=== PATIENT | female | born 1935 | race Caucasian/White ===

== ENCOUNTER 2016-08-11 05:44 | Day surgery (SDC) | payer MEDICARE, OTHER ==
[2016-08-11] MEDS ORDERED: Lactated Ringers 1,000 ML IV SCH (06:30)
[2016-08-11] MEDS ORDERED: DIPRIVAN 200 MG/20 ML IV ONE (08:00)
[2016-08-11 08:54] VITALS: O2SAT 94
[2016-08-11 10:28] VITALS: BP 150/79; PULSE 72
--- NOTE | 2016-08-11 14:12 | OP ---
SURGERY DATE: 08/11/16 SURGERY TIME: 725 PREOPERATIVE DIAGNOSIS: 1. RECTAL BLEEDING. POSTOPERATIVE DIAGNOSIS: 1. MULTIPLE COLON POLYPS. 2. SMALL SEGMENT OF COLITIS IN THE SIGMOID COLON. PROCEDURE: 1. Colonoscopy with polypectomy. SURGEON: Dr. Celaya. ANESTHESIA: MAC, medications given by the Anesthesia Department. BRIEF HISTORY: The patient is a 80 y/o WF patient presenting now for complaints of rectal bleeding. The patient was felt to need to have endoscopic evaluation. She was appraised of the risks of the procedure including the risk of perforation, phlebitis, untoward reaction to medication, bleeding, and missed lesions. The patient verbalized her understanding and desired to have the procedure performed. DESCRIPTION OF PROCEDURE: The patient was given the medications by the Anesthesia Department. She had continuous pulse oximetry, ECG monitoring, intermittent BP monitoring, and end tidal CO2 monitoring during the examination. She was placed in the left lateral decubitus position. A digital rectal examination was performed and revealed normal anal sphincter tone and no masses. The flexible Olympus pediatric colonoscope was used to intubate the rectum. A view of the colon was developed sequentially to the cecum. Upon insertion and withdrawal, was noted multiple polyps, 1 in each segment of the colon was removed including a larger one in the rectosigmoid area which was removed using polypectomy snare and retrieved for pathologic evaluation. There was also noted approximately a 5-10 cm area of colitis in the sigmoid colon with erythema and mucus, but no erosions. The scope was removed from the patient who tolerated the procedure well and was sent back to OP recovery in good condition. The prep was noted to be fair to good.
== END 2016-08-11 09:45 | disposition home or self-care (01) ==
LOC: SDC 05:44
PROVIDERS: ATTEND Family Medicine
PROC: 0DBK8ZX Excision of Ascending Colon, Via Natural or Artificial Opening Endoscopic, Diagnostic (ICD-10-PCS; principal; 2016-08-11)
PROC: 0DBL8ZX Excision of Transverse Colon, Via Natural or Artificial Opening Endoscopic, Diagnostic (ICD-10-PCS; 2016-08-11)
PROC: 0DBM8ZX Excision of Descending Colon, Via Natural or Artificial Opening Endoscopic, Diagnostic (ICD-10-PCS; 2016-08-11)
DX: D12.2 Benign neoplasm of ascending colon (principal); D12.4 Benign neoplasm of descending colon; D12.3 Benign neoplasm of transverse colon; K52.9 Noninfective gastroenteritis and colitis, unspecified
CPT/HCPCS: 00810; 36415; 88305; 99100; J2704

== ENCOUNTER 2021-06-25 10:50 | Inpatient (IN) | payer MEDICARE ==
[2021-06-25] MEDS ORDERED: Sodium Chloride 0.9% 1000 ML 1,000 ML IV STA (11:25)
[2021-06-25] MEDS ORDERED: Zosyn 3.375 GM Vial 3.375 GM in Sodium Chloride 100ML MINI-BAG PLUS 100 ML IV ONE (11:26)
[2021-06-25] MEDS ORDERED: VANCOMYCIN 2 GRAM/400 ML BAG 2 GM/400 ML PIGGYBACK IV ONE ×2 (11:27→11:34)
[2021-06-25] MEDS ORDERED: Zosyn 3.375 GM Vial IV ONE (11:33)
[2021-06-25 11:34] LABS: Absolute Neutrophil Ct (ANC) 6.97 (1.4-6.9); Basophil (Absolute #) 0.02 (0-0.4); Eosinophil % 0.6 % (0.00-5.0); Eosinophil (Absolute #) 0.05 (0-0.5); Hemoglobin 8.8 gm/dl (12.0-16.0); Lymphocyte (Absolute #) 0.62 (1.0-4.6); Lymphocytes % 7.6 % (24.0-44.0); Mean Cell Volume 90.6 fl (78-100); Mean Corpuscular Hemoglobin 27.5 pg (26-32); Mean Corpuscular Hgb Concent. 30.3 g/dl (32-36); Mean Platelet Volume 7.8 fl (7.5-11.0); Monocyte (Absolute #) 0.54 (0.0-1.3); Monocytes % 6.6 % (0.0-12.0); Platelet Count 216 K/mm3 (150-450); Red Cell Distribution Width 18.1 % (11.5-14.0); White Blood Count 8.2 K/mm3 (4.0-10.5)
[2021-06-25] MEDS ORDERED: Sodium Chloride 100ML MINI-BAG PLUS 100 ML IV ONE (11:34)
[2021-06-25] MEDS ORDERED: Sodium Chloride 0.9% 1000 ML 1,000 ML ONE (11:34)
[2021-06-25 11:42] LABS: INR 1.75 (0.8-3.0); PROTIME 20.7 SECONDS (9.4-12.5)
--- NOTE | 2021-06-25 11:49 | ERPHSYRPT ---
- History of Present Illness Time Seen by Provider: 06/25/21 11:03 Source: patient, EMS Exam Limitations: no limitations Patient Subjective Stated Complaint: Pt states "I just cant move today.". ems states "we went on her last night and she did not want to go. We got called out to her house for general weakness and she was half in her seat." Triage Nursing Assessment: PT presented alert and oriented X 3, Skin pwd. Pt smells strongly of infection. Pt depends is full of watery diarrhea and she has large wounds on her backside. Wound is unstageable. pictures were taken. Pt was cleaned and changed. Physician History: 85 years old female with history of atrial fibrillation on Coumadin/digoxin, hypothyroidism, baseline issue with ambulation and uses walker presented in the ER by EMS with increasing generalized weakness since yesterday and today was not able to get out of her chair. Denies any focal numbness tingling or weakness. Patient also reports having loose diarrhea without any abdominal pain nausea or vomiting. Has bilateral lower extremity chronic venous stasis with more swelling and redness on the right as compared to the left and a weeping wound. Patient also has lower back/tailbone area pressure ulcer with black eschar which she is unaware of. Denies fever or chills. Denies any sick contacts. Has minimal productive cough for last couple of days. No chest pain but has palpitations. Patient is hypoxic on room air with sats around lower 80s, placed on 3 L oxygen currently 96%. Timing/Duration: day(s) (1), constant, gradual onset, worse Severity: moderate Associated Symptoms: rash, weakness, No fever Allergies/Adverse Reactions: Penicillins Allergy (Verified 08/11/16 06:17) Home Medications: Amlodipine Besylate/Benazepril [Amlodipine-Benazepril 5-10 mg] 1 each PO DAILY 05/16/13 [History] Digoxin 0.125 mg Tablet [Lanoxin 0.125MG TABLET] 0.125 mg PO DAILY 05/16/13 [History] Potassium Chloride [Klor-Con 10] 10 meq PO BID 05/16/13 [History] Warfarin Sodium 2 mg [Coumadin 2 MG] 7 mg PO DAILY 05/16/13 [History] Levothyroxine Sodium 25 mcg PO DAILY 08/07/16 [History] Furosemide 20 mg [Lasix 20 mg] 20 mg PO BID 06/25/21 [History] Hx Tetanus, Diphtheria Vaccination/Date Given: No Hx Influenza Vaccination/Date Given: Yes (2012) Hx Pneumococcal Vaccination/Date Given: Yes Immunizations Up to Date: Yes Travel Risk - International Travel Have you traveled outside of the country in past 3 weeks: No - Coronavirus Screening Are you exhibiting any of the following symptoms?: No Close contact with a COVID-19 positive Pt in past 14-21 Days: No - Vaccine Status Have you recieved a Covid-19 vaccination: Yes [employer]: Moderna - Vaccination Dates Date of 2cond Vaccination (if applicable): 2020 - Review of Systems Constitutional: Fatigue, Weakness Eyes: No Symptoms Ears, Nose, & Throat: No Symptoms Respiratory: Cough Cardiac: Palpitations Abdominal/Gastrointestinal: Diarrhea Genitourinary Symptoms: No Symptoms Musculoskeletal: Arthralgias Skin: Cellulitis, Induration, Rash, Skin Lesions Neurological: No Symptoms Psychological: No Symptoms Endocrine: No Symptoms Hematologic/Lymphatic: No Symptoms Immunological/Allergic: No Symptoms - Past Medical History Pertinent Past Medical History: Yes Neurological History: No Pertinent History ENT History: Cataracts Cardiac History: Arrhythmia, Hypertension, Other Respiratory History: No Pertinent History Endocrine Medical History: Hypothyroidism Musculoskeletal History: No Pertinent History GI Medical History: No Pertinent History History: No Pertinent History Psycho-Social History: No Pertinent History Female Reproductive Disorders: No Pertinent History - Past Surgical History Past Surgical History: Yes Neuro Surgical History: No Pertinent History Cardiac: No Pertinent History Respiratory: No Pertinent History Gastrointestinal: No Pertinent History Genitourinary: No Pertinent History Musculoskeletal: Joint Replacement Female Surgical History: No Pertinent History Other Surgical History: R Breast BIOPSY, L total Hip, redone next year later.corby cataract removal with lens implant - Social History Smoking Status: Former smoker Exposure to second hand smoke: No Drug Use: none Patient Lives Alone: No Significant Family History: no pertinent family hx - Nursing Vital Signs Nursing Vital Signs: Initial Vital Signs Temperature 98.0 F 06/25/21 10:51 Pulse Rate 119 H 06/25/21 10:51 Respiratory Rate 22 06/25/21 10:51 Pain Scale Pain Intensity 0 - Physical Exam General Appearance: no apparent distress, alert Eye Exam: PERRL/EOMI, eyes nml inspection Ears, Nose, Throat Exam: pharyngeal erythema Neck Exam: normal inspection, supple, full range of motion Respiratory Exam: diminished breath sounds, rhonchi, wheezing, No respiratory distress, No accessory muscle use Cardiovascular Exam: normal heart sounds, tachycardia Gastrointestinal/Abdomen Exam: soft, normal bowel sounds, other (Reducible umbilical hernia), No tenderness Back Exam: other (Tailbone area tissue erythema with a central black eschar) Extremity Exam: inflammation (Bilateral lower extremity erythema more on the right side extending to the knee with weeping wound on the lateral aspect, greenish discharge), pedal edema, swelling Neurologic Exam: alert, oriented x 3, cooperative Skin Exam: rash, decubitus SpO2 Interpretation: hypoxic, O2 applied SpO2: 96 O2 Delivery: Nasal Cannula - Course EKG Interpreted by Me: RATE (124), A-fib, Left [place] Deviation, NORMAL INTERVALS, Right Bundle Branch Block, Non-specific ST Changes Ordered Tests: Active Orders 24 hr Category Date Time Status Bedrest ROUTINE Activity 06/25/21 14:52 Active Up With Assistance ROUTINE Activity 06/25/21 14:52 Active Admit as Inpatient ROUTINE Care 06/25/21 14:52 Active Aeroplane Pilot STAT Care 06/25/21 11:28 Completed Code Status Order ROUTINE Care 06/25/21 14:52 Active EKG-ER Only STAT Care 06/25/21 11:25 Completed Fall Protocol Q1H Care 06/25/21 14:52 Active Cruz [Catheter-[place]] STAT Care 06/25/21 11:28 Completed IV Care Q6H Care 06/25/21 14:52 Active IV Insertion STAT Care 06/25/21 11:19 Completed IV Insertion-2nd Peripheral STAT Care 06/25/21 11:19 Completed Neuro Checks Q4H Care 06/25/21 14:52 Active Oxygen-ED Only Nasal Cannula 2 lpm Care 06/25/21 11:28 Completed Heart-Healthy Diet Diet 06/25/21 Dinner Active CHEST 1 VIEW (PORTABLE) Stat Exams 06/25/21 11:25 Completed BLOOD CULTURE Stat Lab 06/25/21 11:00 Received CBC W DIFF AM.LAB Lab 06/26/21 01:00 Completed CBC W DIFF Stat Lab 06/25/21 11:15 Completed CK-Creatinine Phosphokinase Routine Lab 06/25/21 14:23 Completed CMP AM.LAB Lab 06/26/21 01:00 Completed CMP Stat Lab 06/25/21 11:15 Completed CULTURE,URINE Stat Lab 06/25/21 11:27 Received Lactic Acid Stat Lab 06/25/21 11:25 Completed MAGNESIUM Stat Lab 06/25/21 11:15 Completed NT PRO BNP Routine Lab 06/25/21 14:23 Completed PROCALCITONIN Stat Lab 06/25/21 11:15 Completed PROTIME WITH INR Stat Lab 06/25/21 11:15 Completed Potassium Routine Lab 06/25/21 14:23 Completed TROPONIN Q3H Lab 06/25/21 11:15 Completed TROPONIN Q3H Lab 06/25/21 14:23 Completed TROPONIN Q3H Lab 06/25/21 17:30 Completed TROPONIN Q3H Lab 06/25/21 21:55 Completed TSH, 3RD Generation Stat Lab 06/25/21 11:15 Completed UA W/RFX UR CULTURE Stat Lab 06/25/21 11:27 Completed Oxygen Nasal Cannula 3 lpm RT 06/25/21 14:52 Active Medication Summary Generic Name Dose Route Start Last Admin Trade Name Freq PRN Reason Stop Dose Admin Acetaminophen 650 mg 06/25/21 14:52 Acetaminophen 325 Mg Tablet PO 07/25/21 14:51 Q4H PRN PRN PAIN AND/OR FEVER Sodium Chloride 1,000 mls @ 100 mls/hr 06/25/21 14:52 06/26/21 02:54 Sodium Chloride 0.9% 1000 Ml IV 07/25/21 14:51 100 mls/hr .Q10H MARGARET Administration Piperacillin Sod/Tazobactam 100 mls @ 200 mls/hr 06/25/21 22:00 06/25/21 21:17 Sod 2.25 gm/ Sodium Chloride IV 07/25/21 21:59 200 mls/hr Q8HT MARGARET Administration Vancomycin HCl 1 gm in 200 mls @ 133.333 mls/hr 06/26/21 10:00 Vancomycin 1 Gram/200 Ml Bag IV 07/26/21 09:59 DAILY MARGARET Ondansetron HCl 4 mg 06/25/21 14:52 Ondansetron Hcl 4 Mg/2 Ml Vial IV 07/25/21 14:51 Q6H PRN PRN NAUSEA/VOMITING Pantoprazole Sodium 40 mg 06/25/21 16:00 06/25/21 16:35 Pantoprazole 40 Mg Vial IV 07/25/21 15:59 40 mg Q24H10 MARGARET Administration Discontinued Medications Generic Name Dose Route Start Last Admin Trade Name Freq PRN Reason Stop Dose Admin Albuterol/Ipratropium 3 ml 06/25/21 14:52 Ipratropium/Albuterol Sulfate 3 Ml Ampul.Neb 07/25/21 14:51 Q4HPRN PRN SHORTNESS OF BREATH/WHEEZING Sodium Chloride 1,000 mls @ 999 mls/hr 06/25/21 11:25 06/25/21 12:53 Sodium Chloride 0.9% 1000 Ml IV 06/25/21 12:25 Infused .Q1H1M STA Infusion Piperacillin Sod/Tazobactam 100 mls @ 200 mls/hr 06/25/21 11:26 06/25/21 11:38 Sod 3.375 gm/ Sodium Chloride IV 06/25/21 11:55 200 mls/hr STAT ONE Administration Vancomycin HCl 2 gm in 400 mls @ 133.333 mls/hr 06/25/21 11:27 06/25/21 13:52 Vancomycin 2 Gram/400 Ml Bag IV 06/25/21 14:26 Infused STAT ONE Infusion Sodium Chloride Confirm 06/25/21 11:34 Sodium Chloride 100ml Mini-Bag Plus Administered 06/25/21 11:35 Dose 100 mls @ ud IV .STK-MED ONE Vancomycin HCl Confirm 06/25/21 11:34 Vancomycin 2 Gram/400 Ml Bag Administered 06/25/21 11:35 Dose 2 gm in 400 mls @ ud IV .STK-MED ONE Sodium Chloride Confirm 06/25/21 11:34 Sodium Chloride 0.9% 1000 Ml Administered 06/25/21 11:35 Dose 1,000 mls @ ud .ROUTE .STK-MED ONE Piperacillin Sod/Tazobactam Sod Confirm 06/25/21 11:33 Piperacillin/Tazobactam Sodium 3.375 Gm Vial Administered 06/25/21 11:34 Dose 3.375 gm IV .STK-MED ONE Lab/Rad Data: Laboratory Result Diagrams 06/25/21 11:15 06/25/21 14:23 Laboratory Results 06/25/21 06/25/21 06/25/21 Range/Units 14:23 11:27 11:27 WBC (4.0-10.5) K/mm3 RBC (4.1-5.4) M/mm3 Hgb (12.0-16.0) gm/dl Hct (35-47) % MCV (78-100) fl MCH (26-32) pg MCHC (32-36) g/dl RDW (11.5-14.0) % Plt Count (150-450) K/mm3 MPV (7.5-11.0) fl Gran % (36.0-66.0) % Eos # (Auto) (0-0.5) Absolute Lymphs (auto) (1.0-4.6) Absolute Monos (auto) (0.0-1.3) Lymphocytes % (24.0-44.0) % Monocytes % (0.0-12.0) % Eosinophils % (0.00-5.0) % Basophils % (0.0-0.4) % Absolute Granulocytes (1.4-6.9) Basophils # (0-0.4) PT (9.4-12.5) SECONDS INR (0.8-3.0) Sodium (137-145) mmol/L Potassium 5.6 H (3.5-5.1) mmol/L Chloride (98-107) mmol/L Carbon Dioxide (22-30) mmol/L Anion Gap (5-15) MEQ/L BUN (7-17) mg/dL Creatinine (0.52-1.04) mg/dL Estimated GFR ML/MIN Glucose (74-106) mg/dL Lactic Acid (0.4-2.0) Calcium (8.4-10.2) mg/dL Magnesium (1.6-2.3) mg/dL Total Bilirubin (0.2-1.3) mg/dL AST (14-36) U/L ALT (0-35) U/L Alkaline Phosphatase (38-126) U/L Creatine Kinase 608 H (30-135) U/L Troponin I 0.033 (0.000-0.034) ng/mL NT-Pro-B Natriuret Pep 06717 H (0-1800) pg/mL Serum Total Protein (6.3-8.2) g/dL Albumin (3.5-5.0) g/dL Procalcitonin (0.030-0.080) ng/mL TSH 3rd Generation (0.47-4.68) mIU/L Urine Color SHAQ (YELLOW) Urine Appearance CLOUDY (CLEAR) Urine pH 7.0 (5-6) Ur Specific [place] 1.014 (1.005-1.025) Urine Protein 100 (Negative) Urine Ketones TRACE (NEGATIVE) Urine Blood SMALL (0-5) [place]/ul Urine Nitrite NEGATIVE (NEGATIVE) Urine Bilirubin NEGATIVE (NEGATIVE) Urine Urobilinogen 4 (0-1) mg/dL Ur Leukocyte Esterase NEGATIVE (NEGATIVE) Urine WBC (Auto) 11-15 (0-5) /HPF Urine RBC (Auto) 11-15 (0-2) /HPF U Epithel Cells (Auto) RARE (FEW) /HPF Urine Bacteria (Auto) FEW (NEGATIVE) /HPF Urine Mucus (Auto) SLIGHT (NEGATIVE) /HPF Urine Culture Reflexed YES (NO) Urine Glucose NEGATIVE (NEGATIVE) mg/dL Influenza Type A Ag NEGATIVE (NEGATIVE) Influenza Type B Ag NEGATIVE (NEGATIVE) RSV (PCR) NEGATIVE (Negative) SARS-CoV-2 (PCR) NEGATIVE (NEGATIVE) 06/25/21 06/25/21 06/25/21 Range/Units 11:25 11:15 11:15 WBC (4.0-10.5) K/mm3 RBC (4.1-5.4) M/mm3 Hgb (12.0-16.0) gm/dl Hct (35-47) % MCV (78-100) fl MCH (26-32) pg MCHC (32-36) g/dl RDW (11.5-14.0) % Plt Count (150-450) K/mm3 MPV (7.5-11.0) fl Gran % (36.0-66.0) % Eos # (Auto) (0-0.5) Absolute Lymphs (auto) (1.0-4.6) Absolute Monos (auto) (0.0-1.3) Lymphocytes % (24.0-44.0) % Monocytes % (0.0-12.0) % Eosinophils % (0.00-5.0) % Basophils % (0.0-0.4) % Absolute Granulocytes (1.4-6.9) Basophils # (0-0.4) PT (9.4-12.5) SECONDS INR (0.8-3.0) Sodium (137-145) mmol/L Potassium (3.5-5.1) mmol/L Chloride (98-107) mmol/L Carbon Dioxide (22-30) mmol/L Anion Gap (5-15) MEQ/L BUN (7-17) mg/dL Creatinine (0.52-1.04) mg/dL Estimated GFR ML/MIN Glucose (74-106) mg/dL Lactic Acid 1.9 (0.4-2.0) Calcium (8.4-10.2) mg/dL Magnesium (1.6-2.3) mg/dL Total Bilirubin (0.2-1.3) mg/dL AST (14-36) U/L ALT (0-35) U/L Alkaline Phosphatase (38-126) U/L Creatine Kinase (30-135) U/L Troponin I 0.035 H (0.000-0.034) ng/mL NT-Pro-B Natriuret Pep (0-1800) pg/mL Serum Total Protein (6.3-8.2) g/dL Albumin (3.5-5.0) g/dL Procalcitonin 0.886 H (0.030-0.080) ng/mL TSH 3rd Generation (0.47-4.68) mIU/L Urine Color (YELLOW) Urine Appearance (CLEAR) Urine pH (5-6) Ur Specific [place] (1.005-1.025) Urine Protein (Negative) Urine Ketones (NEGATIVE) Urine Blood (0-5) [place]/ul Urine Nitrite (NEGATIVE) Urine Bilirubin (NEGATIVE) Urine Urobilinogen (0-1) mg/dL Ur Leukocyte Esterase (NEGATIVE) Urine WBC (Auto) (0-5) /HPF Urine RBC (Auto) (0-2) /HPF U Epithel Cells (Auto) (FEW) /HPF Urine Bacteria (Auto) (NEGATIVE) /HPF Urine Mucus (Auto) (NEGATIVE) /HPF Urine Culture Reflexed (NO) Urine Glucose (NEGATIVE) mg/dL Influenza Type A Ag (NEGATIVE) Influenza Type B Ag (NEGATIVE) RSV (PCR) (Negative) SARS-CoV-2 (PCR) (NEGATIVE) 06/25/21 06/25/21 06/25/21 Range/Units 11:15 11:15 11:15 WBC 8.2 (4.0-10.5) K/mm3 RBC 3.20 L (4.1-5.4) M/mm3 Hgb 8.8 L (12.0-16.0) gm/dl Hct 29.0 L (35-47) % MCV 90.6 (78-100) fl MCH 27.5 (26-32) pg MCHC 30.3 L (32-36) g/dl RDW 18.1 H (11.5-14.0) % Plt Count 216 (150-450) K/mm3 MPV 7.8 (7.5-11.0) fl Gran % 85.0 H (36.0-66.0) % Eos # (Auto) 0.05 (0-0.5) Absolute Lymphs (auto) 0.62 L (1.0-4.6) Absolute Monos (auto) 0.54 (0.0-1.3) Lymphocytes % 7.6 L (24.0-44.0) % Monocytes % 6.6 (0.0-12.0) % Eosinophils % 0.6 (0.00-5.0) % Basophils % 0.2 (0.0-0.4) % Absolute Granulocytes 6.97 H (1.4-6.9) Basophils # 0.02 (0-0.4) PT 20.7 H (9.4-12.5) SECONDS INR 1.75 (0.8-3.0) Sodium 138 (137-145) mmol/L Potassium 5.9 H (3.5-5.1) mmol/L Chloride 104 (98-107) mmol/L Carbon Dioxide 24 (22-30) mmol/L Anion Gap 16.4 H (5-15) MEQ/L BUN 80 H (7-17) mg/dL Creatinine 2.35 H (0.52-1.04) mg/dL Estimated GFR 21.0 ML/MIN Glucose 80 (74-106) mg/dL Lactic Acid (0.4-2.0) Calcium 8.8 (8.4-10.2) mg/dL Magnesium 2.9 H (1.6-2.3) mg/dL Total Bilirubin 1.80 H (0.2-1.3) mg/dL AST 38 H (14-36) U/L ALT 16 (0-35) U/L Alkaline Phosphatase 89 (38-126) U/L Creatine Kinase (30-135) U/L Troponin I (0.000-0.034) ng/mL NT-Pro-B Natriuret Pep (0-1800) pg/mL Serum Total Protein 7.8 (6.3-8.2) g/dL Albumin 3.3 L (3.5-5.0) g/dL Procalcitonin (0.030-0.080) ng/mL TSH 3rd Generation 5.410 H (0.47-4.68) mIU/L Urine Color (YELLOW) Urine Appearance (CLEAR) Urine pH (5-6) Ur Specific [place] (1.005-1.025) Urine Protein (Negative) Urine Ketones (NEGATIVE) Urine Blood (0-5) [place]/ul Urine Nitrite (NEGATIVE) Urine Bilirubin (NEGATIVE) Urine Urobilinogen (0-1) mg/dL Ur Leukocyte Esterase (NEGATIVE) Urine WBC (Auto) (0-5) /HPF Urine RBC (Auto) (0-2) /HPF U Epithel Cells (Auto) (FEW) /HPF Urine Bacteria (Auto) (NEGATIVE) /HPF Urine Mucus (Auto) (NEGATIVE) /HPF Urine Culture Reflexed (NO) Urine Glucose (NEGATIVE) mg/dL Influenza Type A Ag (NEGATIVE) Influenza Type B Ag (NEGATIVE) RSV (PCR) (Negative) SARS-CoV-2 (PCR) (NEGATIVE) 06/25/21 Range/Units 01:00 WBC (4.0-10.5) K/mm3 RBC (4.1-5.4) M/mm3 Hgb (12.0-16.0) gm/dl Hct (35-47) % MCV (78-100) fl MCH (26-32) pg MCHC (32-36) g/dl RDW (11.5-14.0) % Plt Count (150-450) K/mm3 MPV (7.5-11.0) fl Gran % (36.0-66.0) % Eos # (Auto) (0-0.5) Absolute Lymphs (auto) (1.0-4.6) Absolute Monos (auto) (0.0-1.3) Lymphocytes % (24.0-44.0) % Monocytes % (0.0-12.0) % Eosinophils % (0.00-5.0) % Basophils % (0.0-0.4) % Absolute Granulocytes (1.4-6.9) Basophils # (0-0.4) PT (9.4-12.5) SECONDS INR (0.8-3.0) Sodium (137-145) mmol/L Potassium (3.5-5.1) mmol/L Chloride (98-107) mmol/L Carbon Dioxide (22-30) mmol/L Anion Gap (5-15) MEQ/L BUN (7-17) mg/dL Creatinine (0.52-1.04) mg/dL Estimated GFR ML/MIN Glucose (74-106) mg/dL Lactic Acid (0.4-2.0) Calcium (8.4-10.2) mg/dL Magnesium (1.6-2.3) mg/dL Total Bilirubin (0.2-1.3) mg/dL AST (14-36) U/L ALT (0-35) U/L Alkaline Phosphatase (38-126) U/L Creatine Kinase (30-135) U/L Troponin I 0.042 H* (0.000-0.034) ng/mL NT-Pro-B Natriuret Pep (0-1800) pg/mL Serum Total Protein (6.3-8.2) g/dL Albumin (3.5-5.0) g/dL Procalcitonin (0.030-0.080) ng/mL TSH 3rd Generation (0.47-4.68) mIU/L Urine Color (YELLOW) Urine Appearance (CLEAR) Urine pH (5-6) Ur Specific [place] (1.005-1.025) Urine Protein (Negative) Urine Ketones (NEGATIVE) Urine Blood (0-5) [place]/ul Urine Nitrite (NEGATIVE) Urine Bilirubin (NEGATIVE) Urine Urobilinogen (0-1) mg/dL Ur Leukocyte Esterase (NEGATIVE) Urine WBC (Auto) (0-5) /HPF Urine RBC (Auto) (0-2) /HPF U Epithel Cells (Auto) (FEW) /HPF Urine Bacteria (Auto) (NEGATIVE) /HPF Urine Mucus (Auto) (NEGATIVE) /HPF Urine Culture Reflexed (NO) Urine Glucose (NEGATIVE) mg/dL Influenza Type A Ag (NEGATIVE) Influenza Type B Ag (NEGATIVE) RSV (PCR) (Negative) SARS-CoV-2 (PCR) (NEGATIVE) - Progress Progress: improved, re-examined Progress Note: 06/25/21 14:22 85 years old is evaluated for generalized weakness. Patient was tachycardic on presentation, A. fib with RVR, heart rate in 120s and hypoxic, placed on oxygen. She has right lower extremity cellulitis and decubitus ulcers on low back, started on antibiotics. Work-up showed normal white count, hemoglobin 8.8 which is around her baseline 9. Has acute on chronic renal failure with a creatinine of 2.35 and BUN of 80. Patient also has elevated magnesium and potassium of 5.9 which I believe will improve with fluids. EKG did not show any acute ST elevation. Initial troponins 0.035 which I believe is secondary to A. fib and also renal failure and less of CAD related. Does have UTI. Antibiotics will cover it. I have discussed with Dr. Doyle, reviewed history, current work- up, will continue to gently hydrate and both hold off on Cardizem as her heart rate currently is less than 110. Is possible more related to dehydration and sepsis. Patient is being admitted. Discussed with : Shavon Will see patient in: hospital (full admit) Counseled pt/family regarding: lab results, diagnosis, need for follow-up, rad results - Departure Departure Disposition: Home Clinical Impression: Atrial fibrillation with RVR, Sepsis, Cellulitis, Acute on chronic renal gomez lure, Dehydration, Acute UTI Condition: Stable Critical Care Time: Yes Critical Care Time(excluding separately billable procedures): Critical 30-74 mins
[2021-06-25 11:56] LABS: Appearance CLOUDY (CLEAR); Bacteria FEW /HPF (NEGATIVE); Bilirubin NEGATIVE (NEGATIVE); Blood SMALL Ery/ul (0-5); Epithelial Cells RARE /HPF (FEW); Glucose NEGATIVE (NEGATIVE); Ketones TRACE (NEGATIVE); Leukocyte Esterase NEGATIVE (NEGATIVE); Mucus SLIGHT /HPF (NEGATIVE); Nitrite NEGATIVE (NEGATIVE); Protein,Urine Dip 100 (Negative); Specific Gravity 1.014 (1.005-1.025); Urobilinogen 4 mg/dL (0-1)
[2021-06-25 12:16] LABS: ALBUMIN 3.3 g/dL (3.5-5.0); ANION GAP 16.4 MEQ/L (5-15); BILIRUBIN,TOTAL 1.8 mg/dL (0.2-1.3); Calcium 8.8 mg/dL (8.4-10.2); Creatinine 1 2.35 mg/dL (0.52-1.04); MAGNESIUM 2.9 mg/dL (1.6-2.3); Potassium 5.9 mmol/L (3.5-5.1); TSH, 3RD Generation 5.41 mIU/L (0.47-4.68); Total Protein 7.8 g/dL (6.3-8.2)
[2021-06-25 12:23] LABS: INFLUENZA A NEGATIVE (NEGATIVE); INFLUENZA B NEGATIVE (NEGATIVE); RESPIRATORY SYNCTIAL VIRUS NEGATIVE (Negative); SARS-CoV-2 Xpert Express NEGATIVE (NEGATIVE)
[2021-06-25 14:43] LABS: Potassium 5.6 mmol/L (3.5-5.1); TROPONIN 0.033 ng/mL (0.000-0.034)
[2021-06-25] MEDS ORDERED: VANCOCIN 1 GM VIAL*** 1 GM in Sodium Chloride 0.9% 250 ML 250 ML IV SCH (14:52)
[2021-06-25] MEDS ORDERED: DUONEB 0.5-3 MG/3 ml Neb IH PRN (14:52)
[2021-06-25] MEDS ORDERED: Zofran 4 MG/2 ML VIAL IV PRN (14:52)
[2021-06-25] MEDS ORDERED: TYLENOL 325 MG PO PRN (14:52)
[2021-06-25] MEDS: Sodium Chloride 0.9% 1000 ML 1,000 ML IV SCH (16:34)
[2021-06-25] MEDS: PROTONIX 40 MG IV IV SCH (16:35)
[2021-06-25] MEDS ORDERED: Zosyn 3.375 GM Vial 3.375 GM in Sodium Chloride 100ML MINI-BAG PLUS 100 ML IV SCH (18:00)
--- NOTE | 2021-06-25 18:08 | XRAY ---
Indication: Weakness and short of breath. Comparison: May 16, 2013. Portable apical lordotic chest demonstrates worsening massive cardiomegaly and new small right/tiny left effusions favoring cardiac decompensation/CHF. Superimposed pneumonia not completely excluded. Bony thorax intact with again osteopenia and degenerative changes. Comment: Preliminary interpretation made by [facility]. No critical discrepancy.
[2021-06-25] MEDS: Zosyn 2.25 GM 2.25 GM in Sodium Chloride 100ML MINI-BAG PLUS 100 ML IV SCH (21:17)
[2021-06-26 01:17] LABS: Absolute Neutrophil Ct (ANC) 7.11 (1.4-6.9); Basophil (Absolute #) 0.01 (0-0.4); Eosinophil % 0.9 % (0.00-5.0); Eosinophil (Absolute #) 0.07 (0-0.5); Hematocrit 26.7 % (35-47); Lymphocyte (Absolute #) 0.61 (1.0-4.6); Lymphocytes % 7.4 % (24.0-44.0); Mean Cell Volume 91.4 fl (78-100); Mean Corpuscular Hemoglobin 27.4 pg (26-32); Mean Platelet Volume 7.9 fl (7.5-11.0); Monocyte (Absolute #) 0.43 (0.0-1.3); Monocytes % 5.2 % (0.0-12.0); Neutrophil % 86.4 % (36.0-66.0); Platelet Count 172 K/mm3 (150-450); Red Blood Count 2.92 M/mm3 (4.1-5.4); Red Cell Distribution Width 17.8 % (11.5-14.0); White Blood Count 8.2 K/mm3 (4.0-10.5)
[2021-06-26 01:56] LABS: ANION GAP 16.3 MEQ/L (5-15); BILIRUBIN,TOTAL 1.3 mg/dL (0.2-1.3); Creatinine 1 2.25 mg/dL (0.52-1.04); EST GLOMERULAR FILTRATION RATE 22.1 ML/MIN; Potassium 5.1 mmol/L (3.5-5.1); Total Protein 7.2 g/dL (6.3-8.2)
[2021-06-26] MEDS: Sodium Chloride 0.9% 1000 ML 1,000 ML IV SCH ×2 (02:54→14:44)
[2021-06-26] MEDS: Zosyn 2.25 GM 2.25 GM in Sodium Chloride 100ML MINI-BAG PLUS 100 ML IV SCH ×3 (06:14→21:31)
[2021-06-26] MEDS: PROTONIX 40 MG IV IV SCH (09:18)
[2021-06-26] MEDS: Lanoxin 0.125MG TABLET PO SCH (09:18)
[2021-06-26] MEDS: Lotrel 5/10 MG PO SCH ×2 (09:18→09:22)
[2021-06-26] MEDS: SYNTHROID 25 MCG PO SCH (09:18)
[2021-06-26] MEDS: LASIX 20 MG PO SCH ×2 (09:18→17:20)
[2021-06-26] MEDS: VANCOMYCIN 1 GRAM/200 ML BAG 1 GM/200 ML PIGGYBACK IV SCH (09:18)
[2021-06-26] MEDS ORDERED: ENOXAPARIN SODIUM SQ SCH (14:00)
--- NOTE | 2021-06-26 14:25 | PCM.HP ---
History of Present Illness - Chief Complaint Chief Complaint: AFIB W RVR, SEPSIS, CELLULITIS, DEHYDRATION, UTI, ACUTE CHRONIC RENAL FAILU History of Present Illness: is a 85 year old female of Dr Celaya with PMHx severe mitral and tricuspid regurgitataion and Afib on coumadin and dig. HTN ,hypothyroid and CRF. States she has seen a Kidney Specialist a few months ago. Patient lives at home with her and has had a decline in strength since [place]. Family states she stopped taking Lotrel and it is not clear if she has been taking her other meds. She presented to ER with extreme weakness stating she could not stand up on her own. C/O legs swollen for weeks and getting worse. Medications & Allergies Home Medications: Home Medication List Amlodipine Besylate/Benazepril [Amlodipine-Benazepril 5-10 mg] 1 each PO DAILY 05/16/13 [History Confirmed 06/25/21] Digoxin 0.125 mg Tablet [Lanoxin 0.125MG TABLET] 0.125 mg PO DAILY 05/16/13 [History Confirmed 06/25/21] Potassium Chloride [Klor-Con 10] 10 meq PO BID 05/16/13 [History Confirmed 06/25/21] Warfarin Sodium 2 mg [Coumadin 2 MG] 7 mg PO DAILY 05/16/13 [History Confirmed 06/25/21] Levothyroxine Sodium 25 mcg PO DAILY 08/07/16 [History Confirmed 06/25/21] Furosemide 20 mg [Lasix 20 mg] 20 mg PO BID 06/25/21 [History Confirmed 06/25/21] Allergies/Adverse Reactions: Allergies Allergy/AdvReac Type Severity Reaction Status Date / Time Penicillins Allergy Verified 08/11/16 06:17 - Past Medical History Past Medical History: Yes Neurological History: No Pertinent History ENT History: Cataracts Cardiac History: Arrhythmia, Hypertension, Other Respiratory History: No Pertinent History Endocrine Medical History: Hypothyroidism Musculoskelatal History: No Pertinent History GI Medical History: No Pertinent History History: No Pertinent History Pyscho-Social History: No Pertinent History Reproductive Disorders: No Pertinent History - Past Surgical History Past Surgical History: Yes Neuro Surgical History: No Pertinent History Cardiac History: No Pertinent History Respiratory Surgery: No Pertinent History GI Surgical History: No Pertinent History Genitourinary Surgical Hx: No Pertinent History Musculskeletal Surgical Hx: Joint Replacement Female Surgical History: No Pertinent History Other Surgical History: R Breast BIOPSY, L total Hip, redone next year later.corby cataract removal with lens implant - Social History Smoking Status: Former smoker Exposure to second hand smoke: No Alcohol: None Drug Use: none Significant Family History: no pertinent family hx - Physical Exam Vital Signs: Vital Signs - 24 hr Temp Pulse Resp BP Pulse Ox 06/26/21 12:00 98.2 F 83 21 101/53 93 L 06/26/21 08:00 97.8 F 111 H 26 H 102/56 91 L 06/26/21 07:21 91 L 06/26/21 06:12 96 06/26/21 04:15 98.8 F 109 H 22 91/55 96 06/25/21 23:50 99.1 F 107 H 18 94/56 95 06/25/21 19:31 98.3 F 113 H 22 97/56 96 06/25/21 18:00 97.5 F 113 H 21 101/56 06/25/21 16:56 97.6 F 110 H 84/51 96 06/25/21 15:59 96 06/25/21 15:00 97.6 F 110 H 20 84/51 97 Wound Assessment: Skin/Wound Assessment Wound/Incision Assessment Start: 06/25/21 17:23 Text: Status: Active Freq: Q6H Protocol: Document 06/26/21 08:49 (Rec: 06/26/21 08:51 [id number]) Wound/Incision Assessment Right Arm Wound Assessment Shift Assessment Wound Type Skin Tear Wound Stage Non Pressure Wound Dressing Status Changed Drainage Amount Minimal Drainage Description Serosanguineous General Appearance Bleeding Primary Dressing mepilex Comment mepilex covering Buttock Wound Assessment Shift Assessment Wound Type Pressure Ulcer Wound Stage Unstageable Drainage Amount Minimal Drainage Description Serosanguineous Drainage Odor Mild Odor General Appearance Open to air,Clean/Dry, Blackened,Bleeding Surrounding Tissue [place],Purple Comment multiple pressure ulcers to buttock Results - Labs Lab/Micro Results: Lab Results-Last 24 Hours 06/25/21 06/25/21 06/25/21 Range/Units 01:00 14:23 17:30 WBC (4.0-10.5) K/mm3 RBC (4.1-5.4) M/mm3 Hgb (12.0-16.0) gm/dl Hct (35-47) % MCV (78-100) fl MCH (26-32) pg MCHC (32-36) g/dl RDW (11.5-14.0) % Plt Count (150-450) K/mm3 MPV (7.5-11.0) fl Gran % (36.0-66.0) % Eos # (Auto) (0-0.5) Absolute Lymphs (auto) (1.0-4.6) Absolute Monos (auto) (0.0-1.3) Lymphocytes % (24.0-44.0) % Monocytes % (0.0-12.0) % Eosinophils % (0.00-5.0) % Basophils % (0.0-0.4) % Absolute Granulocytes (1.4-6.9) Basophils # (0-0.4) Sodium (137-145) mmol/L Potassium 5.6 H (3.5-5.1) mmol/L Chloride (98-107) mmol/L Carbon Dioxide (22-30) mmol/L Anion Gap (5-15) MEQ/L BUN (7-17) mg/dL Creatinine (0.52-1.04) mg/dL Estimated GFR ML/MIN Glucose (74-106) mg/dL Calcium (8.4-10.2) mg/dL Total Bilirubin (0.2-1.3) mg/dL AST (14-36) U/L ALT (0-35) U/L Alkaline Phosphatase (38-126) U/L Creatine Kinase 608 H (30-135) U/L Troponin I 0.042 H* 0.033 0.038 H* (0.000-0.034) ng/mL NT-Pro-B Natriuret Pep 84650 H (0-1800) pg/mL Serum Total Protein (6.3-8.2) g/dL Albumin (3.5-5.0) g/dL 06/25/21 06/26/21 06/26/21 Range/Units 21:55 01:00 01:00 WBC 8.2 (4.0-10.5) K/mm3 RBC 2.92 L (4.1-5.4) M/mm3 Hgb 8.0 L (12.0-16.0) gm/dl Hct 26.7 L (35-47) % MCV 91.4 (78-100) fl MCH 27.4 (26-32) pg MCHC 30.0 L (32-36) g/dl RDW 17.8 H (11.5-14.0) % Plt Count 172 (150-450) K/mm3 MPV 7.9 (7.5-11.0) fl Gran % 86.4 H (36.0-66.0) % Eos # (Auto) 0.07 (0-0.5) Absolute Lymphs (auto) 0.61 L (1.0-4.6) Absolute Monos (auto) 0.43 (0.0-1.3) Lymphocytes % 7.4 L (24.0-44.0) % Monocytes % 5.2 (0.0-12.0) % Eosinophils % 0.9 (0.00-5.0) % Basophils % 0.1 (0.0-0.4) % Absolute Granulocytes 7.11 H (1.4-6.9) Basophils # 0.01 (0-0.4) Sodium 137 (137-145) mmol/L Potassium 5.1 (3.5-5.1) mmol/L Chloride 105 (98-107) mmol/L Carbon Dioxide 20 L (22-30) mmol/L Anion Gap 16.3 H (5-15) MEQ/L BUN 75 H (7-17) mg/dL Creatinine 2.25 H (0.52-1.04) mg/dL Estimated GFR 22.1 ML/MIN Glucose 76 (74-106) mg/dL Calcium 8.0 L (8.4-10.2) mg/dL Total Bilirubin 1.30 (0.2-1.3) mg/dL AST 42 H (14-36) U/L ALT 15 (0-35) U/L Alkaline Phosphatase 77 (38-126) U/L Creatine Kinase (30-135) U/L Troponin I 0.037 H* (0.000-0.034) ng/mL NT-Pro-B Natriuret Pep (0-1800) pg/mL Serum Total Protein 7.2 (6.3-8.2) g/dL Albumin 3.0 L (3.5-5.0) g/dL - Radiology Impressions Radiology Exams & Impressions: Radiology Procedures Category Date Time Status CHEST 1 VIEW (PORTABLE) Stat Exams 06/25/21 11:25 Completed CHEST WITHOUT CONTRAST [CT] Stat Exams 06/25/21 14:52 Taken - Other Procedures and Tests Respiratory Therapy 06/25/21 14:52 Oxygen Nasal Cannula 3 lpm
[2021-06-27] MEDS: Sodium Chloride 0.9% 1000 ML 1,000 ML IV SCH ×2 (01:31→11:22)
[2021-06-27 05:26] LABS: Absolute Neutrophil Ct (ANC) 4.92 (1.4-6.9); Basophil (Absolute #) 0.01 (0-0.4); Eosinophil % 1.9 % (0.00-5.0); Eosinophil (Absolute #) 0.12 (0-0.5); Hematocrit 26.5 % (35-47); Hemoglobin 7.7 gm/dl (12.0-16.0); Lymphocyte (Absolute #) 0.82 (1.0-4.6); Lymphocytes % 13.1 % (24.0-44.0); Mean Cell Volume 92.7 fl (78-100); Mean Corpuscular Hemoglobin 26.9 pg (26-32); Mean Corpuscular Hgb Concent. 29.1 g/dl (32-36); Mean Platelet Volume 8.3 fl (7.5-11.0); Monocytes % 6.4 % (0.0-12.0); Neutrophil % 78.4 % (36.0-66.0); Platelet Count 175 K/mm3 (150-450); Red Blood Count 2.86 M/mm3 (4.1-5.4); Red Cell Distribution Width 17.9 % (11.5-14.0); White Blood Count 6.3 K/mm3 (4.0-10.5)
[2021-06-27 05:48] LABS: ALBUMIN 2.8 g/dL (3.5-5.0); ANION GAP 15.1 MEQ/L (5-15); BILIRUBIN,TOTAL 1.1 mg/dL (0.2-1.3); Calcium 7.8 mg/dL (8.4-10.2); Creatinine 1 2.23 mg/dL (0.52-1.04); EST GLOMERULAR FILTRATION RATE 22.3 ML/MIN; Potassium 4.7 mmol/L (3.5-5.1); Total Protein 7.1 g/dL (6.3-8.2)
[2021-06-27] MEDS: Zosyn 2.25 GM 2.25 GM in Sodium Chloride 100ML MINI-BAG PLUS 100 ML IV SCH ×3 (06:32→21:02)
[2021-06-27] MEDS ORDERED: TROUGH DRUG LEVELS IJ ONE (09:30)
[2021-06-27 10:00] LABS: ABO TYPING A; Antibody Screen NEGATIVE (NEGATIVE); RH TYPING POSITIVE
[2021-06-27 10:06] LABS: CROSS MATCH (PRBC) COMPATIBLE (COMPATIBLE)
[2021-06-27] MEDS: VANCOMYCIN 1 GRAM/200 ML BAG 1 GM/200 ML PIGGYBACK IV SCH (10:10)
[2021-06-27] MEDS: Lanoxin 0.125MG TABLET PO SCH (10:11)
[2021-06-27] MEDS: Lotrel 5/10 MG PO SCH (10:11)
[2021-06-27] MEDS: ENOXAPARIN SODIUM SQ SCH (10:11)
[2021-06-27] MEDS: PROTONIX 40 MG IV IV SCH (10:11)
[2021-06-27] MEDS: LASIX 20 MG PO SCH ×2 (10:15→17:13)
[2021-06-27] MEDS: SYNTHROID 25 MCG PO SCH (10:15)
--- NOTE | 2021-06-27 10:25 | XRAY ---
Indication: Edema. Two-dimensional sonogram and color Doppler imaging of the major venous vessels of the left and right leg performed. Comparison: None No thrombus seen in the examined deep venous vessels of the left and right leg including greater saphenous vein. Veins demonstrate normal compressibility. Venous waveforms are normal with and without augmentation. Impression: Left and right legs negative for DVT.
--- NOTE | 2021-06-27 14:24 | ECHO ---
Transthoracic echocardiographic examination and color Doppler was done on 06/27/2021. INDICATION: Shortness of breath, congestive heart failure. IMPRESSION: 1) NO REGIONAL WALL MOTION ABNORMALITY. ESTIMATED GLOBAL LEFT VENTRICULAR EJECTION FRACTION AROUND 50 TO 55%. 2) MARKEDLY DILATED RIGHT SIDED CHAMBERS. 3) MODERATE MITRAL REGURGITATION. 4) SEVERE TRICUSPID REGURGITATION WITH A RIGHT VENTRICULAR SYSTOLIC PRESSURE OF 42 MM OF MERCURY. 5) MILD LEFT VENTRICULAR HYPERTROPHY. 6) MILDLY DILATED LEFT ATRIUM. 7) DILATED INFERIOR VENA CAVA. 8) NO EVIDENCE OF ASCITES. The left ventricle is visualized and demonstrated adequate motion of all the segments. Estimated global left ventricular ejection fraction between 50 to 55%. The right sided chambers are markedly dilated. There is severe tricuspid regurgitation with a right ventricular systolic pressure of 42 mm of Mercury. The mitral valve was seen this opens adequately. There is moderate mitral regurgitation with a color jet directed posteriorly. The aortic valve is sclerotic. The peak gradient across the aortic valve is 8 mm of Mercury. The visualized aorta appears to be normal. There is mild left ventricular hypertrophy. The inferior vena cava is dilated. There is also no evidence of ascites.
[2021-06-27] MEDS: Coreg 3.125 MG PO SCH (21:02)
[2021-06-27 21:19] LABS: Hematocrit 29.8 % (35-47); Hemoglobin 8.9 gm/dl (12.0-16.0)
[2021-06-27] MEDS ORDERED: Apresoline 25 MG TABLET PO SCH (22:00)
[2021-06-28 04:57] LABS: INR 1.58 (0.8-3.0); PROTIME 18.6 SECONDS (9.4-12.5)
[2021-06-28] MEDS: Zosyn 2.25 GM 2.25 GM in Sodium Chloride 100ML MINI-BAG PLUS 100 ML IV SCH ×2 (05:05→13:32)
[2021-06-28 07:51] LABS: Absolute Neutrophil Ct (ANC) 5.21 (1.4-6.9); Basophil (Absolute #) 0.01 (0-0.4); Eosinophil % 2.3 % (0.00-5.0); Eosinophil (Absolute #) 0.15 (0-0.5); Hematocrit 29.4 % (35-47); Hemoglobin 8.7 gm/dl (12.0-16.0); Lymphocyte (Absolute #) 0.73 (1.0-4.6); Lymphocytes % 11.2 % (24.0-44.0); Mean Cell Volume 93.3 fl (78-100); Mean Corpuscular Hemoglobin 27.6 pg (26-32); Mean Corpuscular Hgb Concent. 29.6 g/dl (32-36); Mean Platelet Volume 8.5 fl (7.5-11.0); Monocyte (Absolute #) 0.43 (0.0-1.3); Monocytes % 6.6 % (0.0-12.0); Neutrophil % 79.7 % (36.0-66.0); Platelet Count 194 K/mm3 (150-450); Red Blood Count 3.15 M/mm3 (4.1-5.4); Red Cell Distribution Width 17.5 % (11.5-14.0); White Blood Count 6.5 K/mm3 (4.0-10.5)
[2021-06-28 08:11] LABS: ANION GAP 16.6 MEQ/L (5-15); BILIRUBIN,TOTAL 0.9 mg/dL (0.2-1.3); Calcium 8.2 mg/dL (8.4-10.2); Creatinine 1 2.27 mg/dL (0.52-1.04); EST GLOMERULAR FILTRATION RATE 21.9 ML/MIN; Potassium 4.6 mmol/L (3.5-5.1); TROPONIN 0.022 ng/mL (0.000-0.034); Total Protein 7.5 g/dL (6.3-8.2)
[2021-06-28] MEDS: Lanoxin 0.125MG TABLET PO SCH (09:06)
[2021-06-28] MEDS: SYNTHROID 25 MCG PO SCH (09:10)
[2021-06-28] MEDS: Coreg 3.125 MG PO SCH (09:10)
[2021-06-28] MEDS: LASIX 20 MG PO SCH (09:11)
[2021-06-28] MEDS: Apresoline 25 MG TABLET PO SCH ×3 (09:11→13:36)
[2021-06-28] MEDS: ENOXAPARIN SODIUM SQ SCH (09:11)
[2021-06-28] MEDS: PROTONIX 40 MG IV IV SCH (09:12)
[2021-06-28] MEDS ORDERED: TROUGH DRUG LEVELS IJ ONE (09:30)
--- NOTE | 2021-06-28 10:11 | CONS ---
CONSULT DATE: 06/27/2021 BRIEF HISTORY: This is an 85-year-old who was seen for shortness of breath and leg edema. The patient has been bedridden for a number of weeks now and was admitted on 06/25/2021 with cellulitis, dehydration, urinary tract infection and renal failure. She lives at home with her and needs a lot of assistance to get up. She complains of shortness of breath even with just plain conversation. She denies any chest pain. In addition, she has developed significant swelling of both lower extremities. The patient has a history of permanent atrial fibrillation and also severe tricuspid regurgitation and moderate to severe mitral regurgitation. She has never been diagnosed with myocardial infarction. She is anticoagulated for atrial fibrillation but this has been held as she has significant anemia. CARDIAC RISK FACTORS: Negative for diabetes. History of hypertension. She is a reformed smoker. No known hyperlipidemia. CURRENT MEDICATIONS: Amlodipine/Benazepril 5-10 daily, digoxin 0.125 mg a day, furosemide 20 mg twice a day, levothyroxine 25 mcg daily, potassium 10 mEq twice a day. Coumadin which is held at this time. 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 RESPIRATORY: She has no history of bronchitis, no hemoptysis. GI: Denies any nausea. No vomiting. : No dysuria. She has BUN 75, creatinine 2.25, GFR 22. PERIPHERAL VASCULAR: No history of deep vein thrombosis but she has chronic venous insufficiency and lower extremity edema with cellulitis. PHYSICAL EXAMINATION: Blood pressure 96/60 with a heart rate of 86, respirations about 24. GENERAL: The patient is an elderly female who is emaciated, bedridden but still conversant. HEENT: Nonicteric sclera. Pale conjunctivae. NECK: There is a prominent V-wave. No carotid bruit. CHEST: The breath sounds are generally diminished with some coarse rhonchi. CARDIAC: Heart tones are variable with a grade 2/6 systolic murmur along the right parasternal border. There is a grade 2/6 holosystolic murmur at the apex. There is atrial fibrillation. ABDOMEN: Soft with normal bowel sounds. EXTREMITIES: There is bilateral leg edema with stasis dermatitis. LAB DATA AND DIAGNOSTIC TESTS: The BUN 75, creatinine 2.25, [place] [address]. Hemoglobin 7.7 with white count of 6.3, PLT count 175,000. The electrocardiogram shows atrial fibrillation with right bundle branch block and left posterior hemiblock. The echocardiogram shows left ventricular ejection fraction between 50-55%. The right side chambers are markedly dilated. There is severe tricuspid regurgitation. Right ventricular systolic pressure of 42 mm of Mercury. There is also moderate mitral regurgitation. IMPRESSION: The patient has: 1) Severe tricuspid regurgitation with a markedly dilated right side chambers. Essentially the patient is in right-sided failure. She has a cor pulmonale pathology. In addition, she has renal failure for which reason we are going to stop the Amlodipine-Benazepril and switch her to hydralazine and start at a lower dose with parameters to hold it for systolic blood pressure more than 110. In addition, we are going to start her on beta blockers. 2) Chronic atrial fibrillation. The patient needs to be anticoagulated but it needs to be held at this time as she has significant anemia. 3) History of hypertension. 4) Chronic renal failure probably stage 4 to 5. RECOMMENDATION: Clinical condition was explained in detail to the patient. Her overall prognosis is somewhat poor. Given her general debility with multiple medical comorbidities would stratify patient to a conservative approach.
--- NOTE | 2021-06-28 15:55 | PCM.CONS ---
Podiatry HPI - Consult Date of Consultation Date: 06/28/21 Reason for Consult: Bilateral venous insufficiency with localized edema Consulting Provider: KATHI SEXTON DPM - [facility] History of Present Illness: Lavonne is a very pleasant 85-year-old female who is seen at bedside this a.m. for bilateral leg swelling. Patient indicates that she had some significant leg swelling in the last several days. She has noticed with increase in her water pill a lot of the pain has subsided however her legs are significantly swollen and tender to the touch. She indicates that she does have a positive medical history of A. fib with RVR, acute on chronic renal failure and was recently admitted for generalized weakness.. She denies any constitutional symptoms of infection. She denies any other pedal complaints at this time. Medications & Allergies Home Medications: Home Medication List Amlodipine Besylate/Benazepril [Amlodipine-Benazepril 5-10 mg] 1 each PO DAILY 05/16/13 [History Confirmed 06/25/21] Digoxin 0.125 mg Tablet [Lanoxin 0.125MG TABLET] 0.125 mg PO DAILY 05/16/13 [History Confirmed 06/25/21] Potassium Chloride [Klor-Con 10] 10 meq PO BID 05/16/13 [History Confirmed 06/25/21] Warfarin Sodium 2 mg [Coumadin 2 MG] 7 mg PO DAILY 05/16/13 [History Confirmed 06/25/21] Levothyroxine Sodium 25 mcg PO DAILY 08/07/16 [History Confirmed 06/25/21] Furosemide 20 mg [Lasix 20 mg] 20 mg PO BID 06/25/21 [History Confirmed 06/25/21] Levofloxacin [Levofloxacin 250MG Tablet] 250 mg PO Q48H 10 Days #5 tab 06/28/21 [Rx] Allergies/Adverse Reactions: Allergies Allergy/AdvReac Type Severity Reaction Status Date / Time Penicillins Allergy Verified 08/11/16 06:17 - Past Medical History Past Medical History: Yes Neurological History: No Pertinent History ENT History: Cataracts Cardiac History: Arrhythmia, Hypertension, Other Respiratory History: No Pertinent History Endocrine Medical History: Hypothyroidism Musculoskelatal History: No Pertinent History GI Medical History: No Pertinent History History: No Pertinent History Pyscho-Social History: No Pertinent History Reproductive Disorders: No Pertinent History - Past Surgical History Past Surgical History: Yes Neuro Surgical History: No Pertinent History Cardiac History: No Pertinent History Respiratory Surgery: No Pertinent History GI Surgical History: No Pertinent History Genitourinary Surgical Hx: No Pertinent History Musculskeletal Surgical Hx: Joint Replacement Female Surgical History: No Pertinent History Other Surgical History: R Breast BIOPSY, L total Hip, redone next year later.corby cataract removal with lens implant - Social History Smoking Status: Former smoker Exposure to second hand smoke: No Alcohol: None Drug Use: none Significant Family History: no pertinent family hx Physical Exam - Narrative Narrative Physical Exam: Podiatry Physical Exam Vascular: DP and PT pulses are palpable. There is calf pain with compression of the bilateral calves. Pain with palpation to the greater saphenous vein at the inner aspect of the ankles. There is 4+ pitting edema to the bilateral lower extremity to the pretibial area and dorsal aspect of the foot. No evidence of cellulitis streaking. No inflammation noted at the posterior popliteal or inguinal lymph nodes on palpation. No evidence of lymphedema Dermatological: Skin is taut shiny with loss of resting skin tension lines. Once again 4+ pitting edema. Neurological: Protective sensation is intact. Epicritic sensation intact. Protopathic sensation intact. Musculoskeletal: Compartments soft and compressible. Pain with bilateral compression to calfs and medial aspect of ankle along course of greater saphenous vein. Wiggles toes remaining musculoskeletal exam deferred. Results - Labs Lab/Micro Results: Lab Results-Last 24 Hours 06/25/21 06/27/21 06/28/21 Range/Units 11:15 21:20 04:45 WBC 8.2 (4.0-10.5) K/mm3 RBC 3.20 L (4.1-5.4) M/mm3 Hgb 8.8 L 8.9 L (12.0-16.0) gm/dl Hct 29.0 L 29.8 L (35-47) % MCV 90.6 (78-100) fl MCH 27.5 (26-32) pg MCHC 30.3 L (32-36) g/dl RDW 18.1 H (11.5-14.0) % Plt Count 216 (150-450) K/mm3 MPV 7.8 (7.5-11.0) fl Gran % 85.0 H (36.0-66.0) % Eos # (Auto) 0.05 (0-0.5) Absolute Lymphs (auto) 0.62 L (1.0-4.6) Absolute Monos (auto) 0.54 (0.0-1.3) Lymphocytes % 7.6 L (24.0-44.0) % Monocytes % 6.6 (0.0-12.0) % Eosinophils % 0.6 (0.00-5.0) % Basophils % 0.2 (0.0-0.4) % Absolute Granulocytes 6.97 H (1.4-6.9) Basophils # 0.02 (0-0.4) Smear Path Review Pending PT (9.4-12.5) SECONDS INR (0.8-3.0) Sodium (137-145) mmol/L Potassium (3.5-5.1) mmol/L Chloride (98-107) mmol/L Carbon Dioxide (22-30) mmol/L Anion Gap (5-15) MEQ/L BUN (7-17) mg/dL Creatinine (0.52-1.04) mg/dL Estimated GFR ML/MIN Glucose (74-106) mg/dL Calcium (8.4-10.2) mg/dL Total Bilirubin (0.2-1.3) mg/dL AST (14-36) U/L ALT (0-35) U/L Alkaline Phosphatase (38-126) U/L Troponin I (0.000-0.034) ng/mL Serum Total Protein (6.3-8.2) g/dL Albumin (3.5-5.0) g/dL TSH 3rd Generation 5.900 H (0.47-4.68) mIU/L Digoxin (0.8-1.9) ng/mL 06/28/21 06/28/21 06/28/21 Range/Units 04:45 04:45 04:45 WBC 6.5 (4.0-10.5) K/mm3 RBC 3.15 L (4.1-5.4) M/mm3 Hgb 8.7 L (12.0-16.0) gm/dl Hct 29.4 L (35-47) % MCV 93.3 (78-100) fl MCH 27.6 (26-32) pg MCHC 29.6 L (32-36) g/dl RDW 17.5 H (11.5-14.0) % Plt Count 194 (150-450) K/mm3 MPV 8.5 (7.5-11.0) fl Gran % 79.7 H (36.0-66.0) % Eos # (Auto) 0.15 (0-0.5) Absolute Lymphs (auto) 0.73 L (1.0-4.6) Absolute Monos (auto) 0.43 (0.0-1.3) Lymphocytes % 11.2 L (24.0-44.0) % Monocytes % 6.6 (0.0-12.0) % Eosinophils % 2.3 (0.00-5.0) % Basophils % 0.2 (0.0-0.4) % Absolute Granulocytes 5.21 (1.4-6.9) Basophils # 0.01 (0-0.4) Smear Path Review PT 18.6 H (9.4-12.5) SECONDS INR 1.58 (0.8-3.0) Sodium (137-145) mmol/L Potassium (3.5-5.1) mmol/L Chloride (98-107) mmol/L Carbon Dioxide (22-30) mmol/L Anion Gap (5-15) MEQ/L BUN (7-17) mg/dL Creatinine (0.52-1.04) mg/dL Estimated GFR ML/MIN Glucose (74-106) mg/dL Calcium (8.4-10.2) mg/dL Total Bilirubin (0.2-1.3) mg/dL AST (14-36) U/L ALT (0-35) U/L Alkaline Phosphatase (38-126) U/L Troponin I (0.000-0.034) ng/mL Serum Total Protein (6.3-8.2) g/dL Albumin (3.5-5.0) g/dL TSH 3rd Generation (0.47-4.68) mIU/L Digoxin 1.1 (0.8-1.9) ng/mL 06/28/21 Range/Units 04:45 WBC (4.0-10.5) K/mm3 RBC (4.1-5.4) M/mm3 Hgb (12.0-16.0) gm/dl Hct (35-47) % MCV (78-100) fl MCH (26-32) pg MCHC (32-36) g/dl RDW (11.5-14.0) % Plt Count (150-450) K/mm3 MPV (7.5-11.0) fl Gran % (36.0-66.0) % Eos # (Auto) (0-0.5) Absolute Lymphs (auto) (1.0-4.6) Absolute Monos (auto) (0.0-1.3) Lymphocytes % (24.0-44.0) % Monocytes % (0.0-12.0) % Eosinophils % (0.00-5.0) % Basophils % (0.0-0.4) % Absolute Granulocytes (1.4-6.9) Basophils # (0-0.4) Smear Path Review PT (9.4-12.5) SECONDS INR (0.8-3.0) Sodium 140 (137-145) mmol/L Potassium 4.6 (3.5-5.1) mmol/L Chloride 111 H (98-107) mmol/L Carbon Dioxide 18 L (22-30) mmol/L Anion Gap 16.6 H (5-15) MEQ/L BUN 72 H (7-17) mg/dL Creatinine 2.27 H (0.52-1.04) mg/dL Estimated GFR 21.9 ML/MIN Glucose 93 (74-106) mg/dL Calcium 8.2 L (8.4-10.2) mg/dL Total Bilirubin 0.90 (0.2-1.3) mg/dL AST 32 (14-36) U/L ALT 14 (0-35) U/L Alkaline Phosphatase 70 (38-126) U/L Troponin I 0.022 (0.000-0.034) ng/mL Serum Total Protein 7.5 (6.3-8.2) g/dL Albumin 3.0 L (3.5-5.0) g/dL TSH 3rd Generation (0.47-4.68) mIU/L Digoxin (0.8-1.9) ng/mL Microbiology 06/25/21 11:27 Urine Culture - Final Catherized Aerococcus Viridans 06/25/21 11:00 Blood Culture Gram Stain - Final Blood Blood Culture - Final Proteus Mirabilis 06/25/21 11:15 Blood Culture Gram Stain - Preliminary Blood Blood Culture - Preliminary NO GROWTH TO DATE - Radiology Impressions Radiology Exams & Impressions: Radiology Procedures Category Date Time Status ECHO W/2D AND DOPPLER [US] Routine Exams 06/27/21 08:16 Completed VENOUS BILATERAL EXTREMITY [US] Urgent Exams 06/27/21 10:16 Completed Assessment/Plan (1) Venous insufficiency of both lower extremities Current Visit: Yes Status: Acute Assessment & Plan: Initial patient examination evaluation. Concern for deep vein thrombosis to the bilateral lower extremity secondary to calf pain was assessed with a venous ultrasound demonstrating negative for DVT at this time makes these patient an adequate candidate for compression therapy. Bilateral Unna boots were applied to the left and right lower extremity with moderate compression applied with Kerlix and Covan. This will be removed in 2 days for reassessment at that time we will determine if continued compression therapy will be appropriate. Patient okay from my standpoint for discharge if okay from medical standpoint we will continue to follow closely until then thank you Code(s): I87.2 - VENOUS INSUFFICIENCY (CHRONIC) (PERIPHERAL) (2) Localized edema due to fluid overload Current Visit: Yes Status: Acute Code(s): E87.70 - FLUID OVERLOAD, UNSPECIFIED (3) Bilateral calf pain Current Visit: Yes Status: Acute Code(s): M79.661 - PAIN IN RIGHT LOWER LEG; M79.662 - PAIN IN LEFT LOWER LEG (4) Difficulty in walking involving lower leg joint Current Visit: Yes Status: Acute Code(s): R26.2 - DIFFICULTY IN WALKING, NOT ELSEWHERE CLASSIFIED
[2021-06-28 16:19] VITALS: BP 82/47; PULSE 76; O2SAT 93
== END 2021-06-28 16:34 | DRG 308 ==
LOC: ED 10:50 → MED SURG 14:33
PROVIDERS: ADMIT Family Medicine; ATTEND Family Medicine
DX: I48.91 Unspecified atrial fibrillation (principal); A41.9 Sepsis, unspecified organism; N39.0 Urinary tract infection, site not specified; E86.0 Dehydration; I12.9 Hypertensive chronic kidney disease with stage 1 through stage 4 chronic kidney disease, or unspecified chronic kidney disease; E03.9 Hypothyroidism, unspecified; L89.306 Pressure-induced deep tissue damage of unspecified buttock; I87.2 Venous insufficiency (chronic) (peripheral); E87.70 Fluid overload, unspecified; I07.1 Rheumatic tricuspid insufficiency; M79.661 Pain in right lower leg; M79.662 Pain in left lower leg; R26.2 Difficulty in walking, not elsewhere classified; Z79.01 Long term (current) use of anticoagulants; Z79.899 Other long term (current) drug therapy; Z20.828 Contact with and (suspected) exposure to other viral communicable diseases
CPT/HCPCS: 0241U; 36000; 36415; 36430; 51702; 71045; 71250; 80053; 80162; 80202; 81001; 82550; 83605; 83735; 83880; 84132; 84145; 84443; 84484; 85014; 85018; 85025; 85610; 86850; 86900; 86901; 86922; 87040; 87077; 87086; 87186; 93005; 93041; 93306; 93970; 94760; 96360; 96365; 97161; 99285; P9016; 29580; 99222; J1650; J2543; A9270-GY; J3370

== ENCOUNTER 2021-06-29 15:42 | Observation (INO) | payer MEDICARE ==
[2021-06-29 15:52] LABS: A-aADO2 512; ABG HEMOGLOBIN 9.9; ABG POTASSIUM 4.9 (3.5-5.1); ARTERIAL BLD GAS O2 SATURATION 99.3 % (95-100); ARTERIAL BLOOD GAS BASE EXCESS -11.9 (-2.0-2.0); ARTERIAL BLOOD GAS FIO2 100 %; ARTERIAL BLOOD GAS PO2 125 mmHg (75-100); CARBOXYHEMOGLOBIN 2.2 % THgb (0.0-6.9); HCO3- 18.5 (22-28); HGB O2 SAT 96.3 g/dF (94-100); Methhemoglobin 0.9 % (1.4-1.5)
[2021-06-29 15:53] LABS: ABG SITE RIGHT RADIAL; ARTERIAL BLOOD GAS PCO2 61 mmHg (35-45); ARTERIAL BLOOD GAS pH 7.09 (7.35-7.45)
[2021-06-29 15:57] LABS: Hematocrit 34.1 % (35-47); Hemoglobin 9.8 gm/dl (12.0-16.0); Mean Cell Volume 95.8 fl (78-100); Mean Corpuscular Hemoglobin 27.5 pg (26-32); Mean Corpuscular Hgb Concent. 28.7 g/dl (32-36); Mean Platelet Volume 8.2 fl (7.5-11.0); Platelet Count 240 K/mm3 (150-450); Red Blood Count 3.56 M/mm3 (4.1-5.4); Red Cell Distribution Width 18.2 % (11.5-14.0); White Blood Count 9.6 K/mm3 (4.0-10.5)
[2021-06-29] MEDS ORDERED: Sodium Chloride 0.9% 1000 ML 1,000 ML IV SCH ×2 (16:00→20:37)
--- NOTE | 2021-06-29 16:12 | ERPHSYRPT ---
- History of Present Illness Time Seen by Provider: 06/29/21 15:50 Source: family, EMS, shelter records Exam Limitations: other (Patient unresponsive.) Physician History: Patient is an 85-year-old female presents to our ED from a shelter for evaluation status post cardiac arrest with return of spontaneous circulation. shelter nurse is present. She states patient was found unresponsive and pulseless. She initiated CPR. She achieved return of spontaneous circulation after 3 rounds of CPR. EMS arrived. Patient was found to be hypoxic at 79%. Supraglottic airway was achieved. O2 sats improved. RSI drugs were not used for supraglottic airway. Patient arrived airway intact. Oxygenation ventilation via BVM. Glucose was 118. shelter staff reports patient is a full code. Patient unable to provide information towards this HPI. On exam patient has Covan surrounding bilateral lower extremities. She has slight bruising of her left lower abdomen. shelter reports that patient is currently being treated for urinary tract infection. She is on Levaquin 250 mg p.o. daily. Family also informed us that patient has significant renal disease Timing/Duration: today Severity: severe Modifying Factors: Improves With: nothing Associated Symptoms: denies symptoms Allergies/Adverse Reactions: Penicillins Allergy (Verified 08/11/16 06:17) Home Medications: Amlodipine Besylate/Benazepril [Amlodipine-Benazepril 5-10 mg] 1 each PO DAILY 05/16/13 [History] Digoxin 0.125 mg Tablet [Lanoxin 0.125MG TABLET] 0.125 mg PO DAILY 05/16/13 [History] Potassium Chloride [Klor-Con 10] 10 meq PO BID 05/16/13 [History] Warfarin Sodium 2 mg [Coumadin 2 MG] 7 mg PO DAILY 05/16/13 [History] Levothyroxine Sodium 25 mcg PO DAILY 08/07/16 [History] Furosemide 20 mg [Lasix 20 mg] 20 mg PO BID 06/25/21 [History] Hx Tetanus, Diphtheria Vaccination/Date Given: No Hx Influenza Vaccination/Date Given: Yes (2012) Hx Pneumococcal Vaccination/Date Given: Yes Travel Risk - Vaccine Status Have you recieved a Covid-19 vaccination: Yes Vice President Integrated: Moderna - Vaccination Dates Date of 2cond Vaccination (if applicable): 2020 - Review of Systems All Other Systems: Unable due to condition - Past Medical History Pertinent Past Medical History: Yes Neurological History: No Pertinent History ENT History: Cataracts Cardiac History: Arrhythmia, Hypertension, Other Respiratory History: No Pertinent History Endocrine Medical History: Hypothyroidism Musculoskeletal History: No Pertinent History GI Medical History: No Pertinent History History: No Pertinent History Psycho-Social History: No Pertinent History Female Reproductive Disorders: No Pertinent History - Past Surgical History Past Surgical History: Yes Neuro Surgical History: No Pertinent History Cardiac: No Pertinent History Respiratory: No Pertinent History Gastrointestinal: No Pertinent History Genitourinary: No Pertinent History Musculoskeletal: Joint Replacement Female Surgical History: No Pertinent History Other Surgical History: R Breast BIOPSY, L total Hip, redone next year later.corby cataract removal with lens implant - Social History Smoking Status: Former smoker Exposure to second hand smoke: No Drug Use: none Patient Lives Alone: No Significant Family History: no pertinent family hx - Nursing Vital Signs Nursing Vital Signs: Initial Vital Signs Temperature 97.5 F 06/29/21 15:45 Pulse Rate 120 H 06/29/21 15:45 Respiratory Rate 0 L 06/29/21 15:45 Blood Pressure 91/56 06/29/21 15:45 Pain Scale Pain Intensity 0 - Physical Exam General Appearance: other (Patient unresponsive with supraglottic airway intact.) Eye Exam: other (Pupils equal round and sluggish.) Ears, Nose, Throat Exam: normal ENT inspection, TMs normal, pharynx normal (Unable to assess pharynx due to supraglottic airway) Neck Exam: normal inspection, supple, full range of motion Respiratory Exam: other (Breath sounds appear normal. Supraglottic airway intact.) Cardiovascular Exam: normal peripheral pulses (Diminished peripheral pulses particularly the dorsalis pedis pulses but appears bilaterally equal.), capillary refill 2-3 sec Gastrointestinal/Abdomen Exam: soft, other (There is a slight bruise to her left flank) Back Exam: normal inspection, normal range of motion Extremity Exam: normal inspection, normal range of motion, pelvis stable, other (Coban dressings bilateral lower extremity. Nursing staff informs me that patient also has a sacral ulcer.) Neurologic Exam: other (Patient has a supraglottic airway. Patient is not responsive at this time.) Skin Exam: pale Lymphatic Exam: No adenopathy SpO2 Interpretation: hypoxic SpO2: 95 O2 Delivery: Ambu-Bag - Course Nursing assessment & vital signs reviewed: Yes EKG Interpreted by Me: RATE, Sinus Rhythm, Sinus Tach - Radiology Exams Chest X-ray Interpretation: Teleradiologist Report (Massive cardiomegaly. Cardiac decompensation favored CHF. Pleural effusion) Ordered Tests: Active Orders 24 hr Category Date Time Status Bedrest ROUTINE Activity 06/29/21 20:37 Active Registered Safety Engineer STAT Care 06/29/21 15:49 Completed Code Status Order ROUTINE Care 06/29/21 20:37 Active EKG-ER Only STAT Care 06/29/21 15:48 Completed IV Care Q6H Care 06/29/21 20:37 Active IV Insertion STAT Care 06/29/21 15:48 Completed Neuro Checks Q4H Care 06/29/21 20:[address] in Observation ROUTINE Care 06/29/21 20:37 Active Pulse Oximetry (ED) STAT Care 06/29/21 15:48 Completed NPO Diet 06/29/21 20:38 Active CHEST 1 VIEW (PORTABLE) Stat Exams 06/29/21 15:48 Completed ABG [ARTERIAL BLOOD GASES] Stat Lab 06/29/21 15:48 Completed CBC W DIFF AM.LAB Lab 06/30/21 04:00 Ordered CBC W DIFF Stat Lab 06/29/21 15:50 Completed CMP AM.LAB Lab 06/30/21 04:00 Ordered CMP Stat Lab 06/29/21 15:50 Completed CULTURE,URINE Stat Lab 06/29/21 16:04 Received Lactic Acid AM.LAB Lab 06/30/21 04:00 Ordered Manual Differential NC Stat Lab 06/29/21 15:50 Completed NT PRO BNP Stat Lab 06/29/21 15:50 Completed POCT GLUCOSE Stat Lab 06/29/21 15:49 Completed PROTIME WITH INR Stat Lab 06/29/21 15:50 Completed PTT Stat Lab 06/29/21 15:50 Completed TROPONIN Q3H Lab 06/29/21 15:50 Completed TROPONIN Q3H Lab 06/30/21 01:00 Ordered TROPONIN Q3H Lab 06/30/21 04:00 Ordered UA W/RFX UR CULTURE Stat Lab 06/29/21 16:04 Completed Pulse Oximetry CONTINUOUS RT 06/29/21 20:37 Active Standby STAT RT 06/29/21 16:48 Completed Transfer Order Routine Transfer 06/29/21 Completed Medication Summary Generic Name Dose Route Start Last Admin Trade Name Freq PRN Reason Stop Dose Admin Sodium Chloride 1,000 mls @ 100 mls/hr 06/29/21 16:00 06/29/21 18:26 Sodium Chloride 0.9% 1000 Ml IV 07/29/21 15:59 Not Given .Q10H MARGARET Sodium Chloride 1,000 mls @ 100 mls/hr 06/29/21 20:37 Sodium Chloride 0.9% 1000 Ml IV 07/29/21 20:36 .Q10H MARGARET Morphine Sulfate 2 mg 06/29/21 20:37 Morphine Sulfate 2 Mg/Ml Inj IV 07/04/21 20:36 Q4H PRN PRN PAIN Ondansetron HCl 4 mg 06/29/21 20:37 Ondansetron Hcl 4 Mg/2 Ml Vial IV 07/29/21 20:36 Q6H PRN PRN NAUSEA/VOMITING Discontinued Medications Generic Name Dose Route Start Last Admin Trade Name Freq PRN Reason Stop Dose Admin Hydrocortisone Sodium Succinate 100 mg 06/29/21 17:25 06/29/21 18:20 Hydrocortisone Sod Succinate 100 Mg/Vial Vial IV 06/29/21 17:26 Not Given STAT ONE Morphine Sulfate 2 mg 06/29/21 16:54 06/29/21 16:55 Morphine Sulfate 2 Mg/Ml Inj IV 06/29/21 16:55 2 mg STAT ONE Administration Morphine Sulfate Confirm 06/29/21 16:53 Morphine Sulfate 2 Mg/Ml Inj Administered 06/29/21 16:54 Dose 2 mg .ROUTE .STK-MED ONE Sodium Bicarbonate Confirm 06/29/21 16:15 Sodium Bicarbonate 1 Meq/Ml 50ml Syringe Administered 06/29/21 16:16 Dose 50 meq IV .STK-MED ONE Sodium Bicarbonate 50 meq 06/29/21 16:16 06/29/21 16:17 Sodium Bicarbonate 1 Meq/Ml 50ml Syringe IV 06/29/21 16:17 50 meq STAT ONE Administration Lab/Rad Data: Laboratory Result Diagrams 06/29/21 15:50 06/29/21 15:50 Laboratory Results 06/29/21 06/29/21 06/29/21 Range/Units 16:56 16:04 16:00 WBC (4.0-10.5) K/mm3 RBC (4.1-5.4) M/mm3 Hgb (12.0-16.0) gm/dl Hct (35-47) % MCV (78-100) fl MCH (26-32) pg MCHC (32-36) g/dl RDW (11.5-14.0) % Plt Count (150-450) K/mm3 MPV (7.5-11.0) fl Segmented Neutrophils (36.0-66.0) % Band Neutrophils (0.0-2.0) % Lymphocytes (Manual) (24-44) % Monocytes (Manual) (0.0-12.0) % Platelet Estimate (NORMAL) RBC Morphology Macrocytosis PT (9.4-12.5) SECONDS INR (0.8-3.0) APTT (25.1-36.5) SECONDS Puncture Site pCO2 (35-45) mmHg pO2 (75-100) mmHg Base Excess (-2.0-2.0) O2 Saturation (94-100) g/dF ABG pH (7.35-7.45) ABG HCO3 (22-28) ABG O2 Sat (Measured) (95-100) % Mahad Test A-a Gradient a/A Ratio Hemoglobin Carboxyhemoglobin (0.0-6.9) % THgb Methemoglobin (1.4-1.5) % Potassium (3.5-5.1) Temperature C POC O2 Flow Rate % Sodium (137-145) mmol/L Chloride (98-107) mmol/L Carbon Dioxide (22-30) mmol/L Anion Gap (5-15) MEQ/L BUN (7-17) mg/dL Creatinine (0.52-1.04) mg/dL Estimated GFR ML/MIN Glucose (74-106) mg/dL POC Glucometer (74 to 106) mg/dL Calcium (8.4-10.2) mg/dL Total Bilirubin (0.2-1.3) mg/dL AST (14-36) U/L ALT (0-35) U/L Alkaline Phosphatase (38-126) U/L Troponin I (0.000-0.034) ng/mL NT-Pro-B Natriuret Pep (0-1800) pg/mL Serum Total Protein (6.3-8.2) g/dL Albumin (3.5-5.0) g/dL Urine Color YELLOW (YELLOW) Urine Appearance SLIGHTLY CLOUDY (CLEAR) Urine pH 6.0 (5-6) Ur Specific [place] 1.018 (1.005-1.025) Urine Protein >=500 (Negative) Urine Ketones NEGATIVE (NEGATIVE) Urine Blood LARGE (0-5) [place]/ul Urine Nitrite NEGATIVE (NEGATIVE) Urine Bilirubin NEGATIVE (NEGATIVE) Urine Urobilinogen NEGATIVE (0-1) mg/dL Ur Leukocyte Esterase TRACE (NEGATIVE) Urine WBC (Auto) 11-15 (0-5) /HPF Urine RBC (Auto) >101 (0-2) /HPF U Hyaline Cast (Auto) 3-5 (0-2) /LPF U Epithel Cells (Auto) RARE (FEW) /HPF Urine Bacteria (Auto) NONE (NEGATIVE) /HPF Urine Mucus (Auto) SLIGHT (NEGATIVE) /HPF Urine Culture Reflexed YES (NO) Urine Glucose NEGATIVE (NEGATIVE) mg/dL Digoxin 1.6 (0.8-1.9) ng/mL Influenza Type A Ag NEGATIVE (NEGATIVE) Influenza Type B Ag NEGATIVE (NEGATIVE) RSV (PCR) NEGATIVE (Negative) SARS-CoV-2 (PCR) NEGATIVE (NEGATIVE) 06/29/21 06/29/21 06/29/21 Range/Units 15:50 15:50 15:50 WBC (4.0-10.5) K/mm3 RBC (4.1-5.4) M/mm3 Hgb (12.0-16.0) gm/dl Hct (35-47) % MCV (78-100) fl MCH (26-32) pg MCHC (32-36) g/dl RDW (11.5-14.0) % Plt Count (150-450) K/mm3 MPV (7.5-11.0) fl Segmented Neutrophils (36.0-66.0) % Band Neutrophils (0.0-2.0) % Lymphocytes (Manual) (24-44) % Monocytes (Manual) (0.0-12.0) % Platelet Estimate (NORMAL) RBC Morphology Macrocytosis PT 17.1 H (9.4-12.5) SECONDS INR 1.45 (0.8-3.0) APTT 31.2 (25.1-36.5) SECONDS Puncture Site pCO2 (35-45) mmHg pO2 (75-100) mmHg Base Excess (-2.0-2.0) O2 Saturation (94-100) g/dF ABG pH (7.35-7.45) ABG HCO3 (22-28) ABG O2 Sat (Measured) (95-100) % Mahad Test A-a Gradient a/A Ratio Hemoglobin Carboxyhemoglobin (0.0-6.9) % THgb Methemoglobin (1.4-1.5) % Potassium 4.9 (3.5-5.1) Temperature C POC O2 Flow Rate % Sodium 140 (137-145) mmol/L Chloride 110 H (98-107) mmol/L Carbon Dioxide 18 L (22-30) mmol/L Anion Gap 16.9 H (5-15) MEQ/L BUN 74 H (7-17) mg/dL Creatinine 2.89 H (0.52-1.04) mg/dL Estimated GFR 16.5 ML/MIN Glucose 107 H (74-106) mg/dL POC Glucometer (74 to 106) mg/dL Calcium 8.3 L (8.4-10.2) mg/dL Total Bilirubin 0.90 (0.2-1.3) mg/dL AST 27 (14-36) U/L ALT 16 (0-35) U/L Alkaline Phosphatase 73 (38-126) U/L Troponin I 0.036 H* (0.000-0.034) ng/mL NT-Pro-B Natriuret Pep 49259 H (0-1800) pg/mL Serum Total Protein 7.5 (6.3-8.2) g/dL Albumin 3.1 L (3.5-5.0) g/dL Urine Color (YELLOW) Urine Appearance (CLEAR) Urine pH (5-6) Ur Specific [place] (1.005-1.025) Urine Protein (Negative) Urine Ketones (NEGATIVE) Urine Blood (0-5) [place]/ul Urine Nitrite (NEGATIVE) Urine Bilirubin (NEGATIVE) Urine Urobilinogen (0-1) mg/dL Ur Leukocyte Esterase (NEGATIVE) Urine WBC (Auto) (0-5) /HPF Urine RBC (Auto) (0-2) /HPF U Hyaline Cast (Auto) (0-2) /LPF U Epithel Cells (Auto) (FEW) /HPF Urine Bacteria (Auto) (NEGATIVE) /HPF Urine Mucus (Auto) (NEGATIVE) /HPF Urine Culture Reflexed (NO) Urine Glucose (NEGATIVE) mg/dL Digoxin (0.8-1.9) ng/mL Influenza Type A Ag (NEGATIVE) Influenza Type B Ag (NEGATIVE) RSV (PCR) (Negative) SARS-CoV-2 (PCR) (NEGATIVE) 06/29/21 06/29/21 06/29/21 Range/Units 15:50 15:49 15:48 WBC 9.6 (4.0-10.5) K/mm3 RBC 3.56 L (4.1-5.4) M/mm3 Hgb 9.8 L (12.0-16.0) gm/dl Hct 34.1 L (35-47) % MCV 95.8 (78-100) fl MCH 27.5 (26-32) pg MCHC 28.7 L (32-36) g/dl RDW 18.2 H (11.5-14.0) % Plt Count 240 (150-450) K/mm3 MPV 8.2 (7.5-11.0) fl Segmented Neutrophils 81 H (36.0-66.0) % Band Neutrophils 2 (0.0-2.0) % Lymphocytes (Manual) 14 L (24-44) % Monocytes (Manual) 3 (0.0-12.0) % Platelet Estimate NORMAL (NORMAL) RBC Morphology ABNORMAL Macrocytosis 1+ PT (9.4-12.5) SECONDS INR (0.8-3.0) APTT (25.1-36.5) SECONDS Puncture Site RIGHT RADIAL pCO2 61 H* (35-45) mmHg pO2 125 H* (75-100) mmHg Base Excess -11.9 L (-2.0-2.0) O2 Saturation 96.3 (94-100) g/dF ABG pH 7.09 L* (7.35-7.45) ABG HCO3 18.5 L (22-28) ABG O2 Sat (Measured) 99.3 (95-100) % Mahad Test NOT APPLICABLE A-a Gradient 512 a/A Ratio 0.20 Hemoglobin 9.9 Carboxyhemoglobin 2.2 (0.0-6.9) % THgb Methemoglobin 0.9 L (1.4-1.5) % Potassium 4.9 (3.5-5.1) Temperature 37.0 C POC O2 Flow Rate 100 % Sodium (137-145) mmol/L Chloride (98-107) mmol/L Carbon Dioxide (22-30) mmol/L Anion Gap (5-15) MEQ/L BUN (7-17) mg/dL Creatinine (0.52-1.04) mg/dL Estimated GFR ML/MIN Glucose (74-106) mg/dL POC Glucometer 98 (74 to 106) mg/dL Calcium (8.4-10.2) mg/dL Total Bilirubin (0.2-1.3) mg/dL AST (14-36) U/L ALT (0-35) U/L Alkaline Phosphatase (38-126) U/L Troponin I (0.000-0.034) ng/mL NT-Pro-B Natriuret Pep (0-1800) pg/mL Serum Total Protein (6.3-8.2) g/dL Albumin (3.5-5.0) g/dL Urine Color (YELLOW) Urine Appearance (CLEAR) Urine pH (5-6) Ur Specific [place] (1.005-1.025) Urine Protein (Negative) Urine Ketones (NEGATIVE) Urine Blood (0-5) [place]/ul Urine Nitrite (NEGATIVE) Urine Bilirubin (NEGATIVE) Urine Urobilinogen (0-1) mg/dL Ur Leukocyte Esterase (NEGATIVE) Urine WBC (Auto) (0-5) /HPF Urine RBC (Auto) (0-2) /HPF U Hyaline Cast (Auto) (0-2) /LPF U Epithel Cells (Auto) (FEW) /HPF Urine Bacteria (Auto) (NEGATIVE) /HPF Urine Mucus (Auto) (NEGATIVE) /HPF Urine Culture Reflexed (NO) Urine Glucose (NEGATIVE) mg/dL Digoxin (0.8-1.9) ng/mL Influenza Type A Ag (NEGATIVE) Influenza Type B Ag (NEGATIVE) RSV (PCR) (Negative) SARS-CoV-2 (PCR) (NEGATIVE) - Progress Progress: unchanged Progress Note: Elevated BNP. However due to the low blood pressure we will hold off on Lasix at this time. After further discussion with family they decided not to intubate patient. They agreed to pulling the supraglottic airway. Patient breathing spontaneously on her own. Patient was made a DNR. Oxygen facemask applied. Patient resting comfortably. Case discussed with Dr. Christensen who accepts admission to observation. 06/29/21 17:29 Patient is Covid negative. Patient is known to have a urinary tract infection. Patient currently being treated for urinary tract infection. She is receiving oral antibiotics at shelter. Portions of this note were created with voice recognition technology. There may be grammatical, spelling, punctuation or sound alike errors 06/29/21 18:26 06/29/21 22:[address] Daniela Will see patient in: hospital (observation) Counseled pt/family regarding: lab results, diagnosis, rad results - Departure Departure Disposition: Observation Clinical Impression: Cardiac arrest, Signs of return of spontaneous circulation, Unresponsive, Anemia, Acute renal injury, Dehydration, Respiratory acidosis, High anion gap metabolic acidosis, Hypocalcemia, Elevated troponin, Elevated brain natriuretic peptide (BNP) level, Elevated serum creatinine, Massive cardiomegaly, Pleural effusion, Congestive heart failure, UTI (urinary tract infection), Hematuria Condition: Stable Critical Care Time: No
[2021-06-29] MEDS ORDERED: SODIUM BICARBONATE 50 MEQ/50 ML ABBOJECT IV ONE ×2 (16:15→16:16)
--- NOTE | 2021-06-29 16:19 | XRAY ---
Indication: Cardiac arrest. Comparison: June 25, 2021. Portable chest again demonstrates massive cardiomegaly with increasing moderate right and increasing small left effusions again favoring cardiac decompensation/CHF. No new cardiopulmonary abnormalities.
[2021-06-29 16:20] LABS: INR 1.45 (0.8-3.0); PROTIME 17.1 SECONDS (9.4-12.5)
[2021-06-29 16:23] LABS: PTT 31.2 SECONDS (25.1-36.5)
[2021-06-29 16:33] LABS: ALBUMIN 3.1 g/dL (3.5-5.0); BILIRUBIN,TOTAL 0.9 mg/dL (0.2-1.3); Calcium 8.3 mg/dL (8.4-10.2); Creatinine 1 2.89 mg/dL (0.52-1.04); EST GLOMERULAR FILTRATION RATE 16.5 ML/MIN; Potassium 4.9 mmol/L (3.5-5.1); Total Protein 7.5 g/dL (6.3-8.2)
[2021-06-29 16:35] LABS: ANION GAP 16.9 MEQ/L (5-15)
[2021-06-29] MEDS ORDERED: MORPHINE SULFATE 2 MG INJ ONE (16:53)
[2021-06-29] MEDS ORDERED: MORPHINE SULFATE 2 MG INJ IV ONE (16:54)
[2021-06-29] MEDS ORDERED: solu-CORTEF 100MG IV ONE (17:25)
[2021-06-29 17:46] LABS: INFLUENZA A NEGATIVE (NEGATIVE); INFLUENZA B NEGATIVE (NEGATIVE); RESPIRATORY SYNCTIAL VIRUS NEGATIVE (Negative); SARS-CoV-2 Xpert Express NEGATIVE (NEGATIVE)
[2021-06-29 18:09] LABS: BAND 2 % (0.0-2.0); Lymphocytes 14 % (24-44); Macrocytosis 1+; Monocyte 3 % (0.0-12.0); Neutrophils 81 % (36.0-66.0); Platelet Estimate NORMAL (NORMAL); Total Cells Counted 100
[2021-06-29 18:31] VITALS: O2SAT 95
[2021-06-29 19:01] LABS: Appearance SLIGHTLY CLOUDY (CLEAR); Bilirubin NEGATIVE (NEGATIVE); Blood LARGE Ery/ul (0-5); Epithelial Cells RARE /HPF (FEW); Glucose NEGATIVE (NEGATIVE); Ketones NEGATIVE (NEGATIVE); Leukocyte Esterase TRACE (NEGATIVE); Mucus SLIGHT /HPF (NEGATIVE); Nitrite NEGATIVE (NEGATIVE); Protein,Urine Dip >=500 (Negative); Specific Gravity 1.018 (1.005-1.025); Urobilinogen NEGATIVE mg/dL (0-1)
[2021-06-29 19:03] LABS: RBC >101 /HPF (0-2)
[2021-06-29 20:10] VITALS: BP 99/43; PULSE 84
[2021-06-29] MEDS ORDERED: Zofran 4 MG/2 ML VIAL IV PRN (20:37)
[2021-06-29] MEDS ORDERED: MORPHINE SULFATE 2 MG INJ IV PRN (20:37)
--- NOTE | 2021-07-06 06:56 | PCM.SSS ---
History of Present Illness - Chief Complaint Chief Complaint: Cardiac arrest, end-of-life care History of Present Illness: is a 85 year old female pt of Dr. Celaya with chronic renal disease, atrial fibrillation, and mitral and tricuspid valve regurgitation who was admitted through ER. She was staying at [facility] undergoing treatment for UTI when she was found down. She was a full code and staff did CPR; after 3 rounds had return of circulation and was taken to the ER by EMS. She had an airway placed briefly, but family made her a DNR in the ER and she was placed on facemask O2 a nd had comfort care only. She passed not long afterward, before I had a chance to come to the hospital to examine her. Medications & Allergies Home Medications: Home Medication List Amlodipine Besylate/Benazepril [Amlodipine-Benazepril 5-10 mg] 1 each PO DAILY 05/16/13 [History Confirmed 06/29/21] Digoxin 0.125 mg Tablet [Lanoxin 0.125MG TABLET] 0.125 mg PO DAILY 05/16/13 [History Confirmed 06/29/21] Potassium Chloride [Klor-Con 10] 10 meq PO BID 05/16/13 [History Confirmed 06/29/21] Warfarin Sodium 2 mg [Coumadin 2 MG] 7 mg PO DAILY 05/16/13 [History Confirmed 06/29/21] Levothyroxine Sodium 25 mcg PO DAILY 08/07/16 [History Confirmed 06/29/21] Furosemide 20 mg [Lasix 20 mg] 20 mg PO BID 06/25/21 [History Confirmed 06/29/21] Levofloxacin [Levofloxacin 250MG Tablet] 250 mg PO Q48H 10 Days #5 tab 06/28/21 [Rx] Allergies/Adverse Reactions: Allergies Allergy/AdvReac Type Severity Reaction Status Date / Time Penicillins Allergy Verified 08/11/16 06:17 - Past Medical History Past Medical History: Yes Neurological History: No Pertinent History ENT History: Cataracts Cardiac History: Arrhythmia, Hypertension, Other Respiratory History: No Pertinent History Endocrine Medical History: Hypothyroidism Musculoskelatal History: No Pertinent History GI Medical History: No Pertinent History History: No Pertinent History Pyscho-Social History: No Pertinent History Reproductive Disorders: No Pertinent History - Past Surgical History Past Surgical History: Yes Neuro Surgical History: No Pertinent History Cardiac History: No Pertinent History Respiratory Surgery: No Pertinent History GI Surgical History: No Pertinent History Genitourinary Surgical Hx: No Pertinent History Musculskeletal Surgical Hx: Joint Replacement Female Surgical History: No Pertinent History Other Surgical History: R Breast BIOPSY, L total Hip, redone next year later.corby cataract removal with lens implant - Social History Smoking Status: Former smoker Exposure to second hand smoke: No Alcohol: None Drug Use: none Significant Family History: no pertinent family hx - Physical Exam Additional Findings: 07/06/21 06:58 Exam not done by me; only exam done in ER by ER physician. Results - Labs Lab/Micro Results: Microbiology 06/29/21 16:04 Urine Culture - Final Urine, Void NO GROWTH Assessment/Plan (1) Acute respiratory failure Status: Acute Qualifiers: Respiratory failure complication: hypoxia Qualified Code(s): J96.01 - Acute respiratory failure with hypoxia Code(s): J96.00 - ACUTE RESPIRATORY FAILURE, UNSP W HYPOXIA OR HYPERCAPNIA (2) Unresponsive Status: Acute (3) Signs of return of spontaneous circulation Status: Acute Code(s): ABD1165 - (4) Congestive heart failure Status: Acute Qualifiers: Heart failure type: unspecified Heart failure chronicity: unspecified Qualified Code(s): I50.9 - Heart failure, unspecified Code(s): I50.9 - HEART FAILURE, UNSPECIFIED Hospital Summary - Hospital Course Hospital Course: Pt was 85 yo female found down at [facility], CPR done and after 3 rounds ROSC occured and pt was brought to ER by EMS. Family made pt DNR and comfort care only; her airway was removed and she not long afterward. - Vitals & Intake/Output Vital Signs: Vital Signs Temperature 97.5 F 06/29/21 15:45 Pulse Rate 84 06/29/21 20:09 Respiratory Rate 20 06/29/21 20:09 Blood Pressure 99/43 06/29/21 20:09 O2 Sat by Pulse Oximetry 95 06/29/21 22:02 - Lab Result Diagrams: 06/29/21 15:50 06/29/21 15:50 Micro Results-Entire Visit: Microbiology 06/29/21 16:04 Urine Culture - Final Urine, Void NO GROWTH - Procedures and Test Procedures and Tests throughout Hospitalization: Therapy Orders & Screens 06/29/21 16:48 Standby STAT Comment: - Discharge Disposition: Condition: Prescriptions: No Action Potassium Chloride [Klor-Con 10] 10 meq PO BID Digoxin 0.125 mg Tablet [Lanoxin 0.125MG TABLET] 0.125 mg PO DAILY Warfarin Sodium 2 mg [Coumadin 2 MG] 7 mg PO DAILY Amlodipine Besylate/Benazepril [Amlodipine-Benazepril 5-10 mg] 1 each PO DAILY Levothyroxine Sodium 25 mcg PO DAILY Furosemide 20 mg [Lasix 20 mg] 20 mg PO BID Levofloxacin [Levofloxacin 250MG Tablet] 250 mg PO Q48H 10 Days #5 tab Follow up with: ANNABELLA CELAYA [Primary Care Provider] -
== END 2021-06-29 20:59 | disposition expired ==
LOC: ED 15:42 → MED SURG 20:37 → UNDODISOB 23:00
PROVIDERS: ADMIT Family Medicine; ATTEND Family Medicine
DX: J96.01 Acute respiratory failure with hypoxia (principal); R40.4 Transient alteration of awareness; I50.9 Heart failure, unspecified; I46.9 Cardiac arrest, cause unspecified; D64.9 Anemia, unspecified; R79.89 Other specified abnormal findings of blood chemistry; I13.0 Hypertensive heart and chronic kidney disease with heart failure and stage 1 through stage 4 chronic kidney disease, or unspecified chronic kidney disease; N18.9 Chronic kidney disease, unspecified; I48.91 Unspecified atrial fibrillation; N39.0 Urinary tract infection, site not specified; Z79.01 Long term (current) use of anticoagulants; Z79.899 Other long term (current) drug therapy; Z20.828 Contact with and (suspected) exposure to other viral communicable diseases
CPT/HCPCS: 0241U; 36000; 36415; 36600; 71045; 80053; 80162; 81001; 82375; 82803; 82947; 83880; 84484; 85025; 85610; 85730; 87086; 93005; 93041; 94760; 94799; 96374; 99284; J2270